=== PATIENT | female | born 1960 | race African-American/Black ===

== ENCOUNTER 2018-03-06 12:06 | Inpatient (IN) ==
--- NOTE | 2018-03-06 09:33 | MH ---
cc: Tr Velasquez MD, Ashil MD DATE OF ADMISSION: 03/06/2018 CHIEF COMPLAINT: Colon carcinoma of the cecum. HISTORY OF PRESENT ILLNESS: This patient was referred to me by Dr. Umesh Roland for a colon carcinoma found in the cecum across from the ileocecal valve. The lesion biopsied adenocarcinoma. She has a family history of colon carcinoma; however, this was her first colonoscopy. PAST MEDICAL HISTORY: Significant for previous history of hepatitis C, as well as a previous hysterectomy for fibroids. She also has a history of hypertension and mild diabetes mellitus. MEDICATIONS: 1. Lisinopril 10 mg a day. 2. Amlodipine 10 mg a day. 3. Metoprolol 50 mg a day. 4. Baclofen 20 mg a day. 5. Trazodone, unknown dosage and usage. 6. Aspirin 81 mg a day. 7. Metformin 500 mg daily. FAMILY HISTORY: Significant for colon carcinoma in her father. SOCIAL HISTORY: Otherwise negative. REVIEW OF SYSTEMS: Otherwise negative. PHYSICAL EXAMINATION: GENERAL: Well-developed, well-nourished female, in no acute distress. SKIN: Warm and dry. HEENT: Extraocular muscles intact. NECK: Supple. CHEST: Clear. HEART: S1 and S2 was heard. No murmurs or gallops. ABDOMEN: Soft, nontender. No masses. RECTAL: Exam was not done. EXTREMITIES: Range of motion within normal limits. NEUROLOGIC: Grossly normal. IMAGING STUDIES: Preoperative studies including ultrasound of the abdomen and liver, which was negative and a CT scan of the chest, which was negative for metastatic disease. IMPRESSION: Colon carcinoma of the cecum. PLAN: Recommend ascending colectomy. I have gone over all the risks, benefits and alternatives with her. She understands and wishes to proceed. Tr Velasquez MD JJULIETA/JIM , 09:16 AM , 09:31 AM
[~2018-03-06 12:06] MED LIST: Lidocaine PF 1% Inj 5 ML Syringe INFILTRATN ONE; Phenylephrine/NS 1000 MCG/10ML Syringe IV.PUSH ONE
[2018-03-06] MEDS ORDERED: Chlorhexidine Gluconate 2% 1 Pack (2 Cloths) TOPICAL SCH (12:45)
[2018-03-06] MEDS ORDERED: Dextrose 5%/NaCl 0.9% Inj 1,000 ML IV.SIG SCH (13:00)
[2018-03-06] MEDS ORDERED: Sodium Chlor 0.9% Inj 500 ML IV.SIG SCH (13:00)
[2018-03-06] MEDS ORDERED: Metoprolol Tartrate 25 MG Tablet PO SCH (13:00)
[2018-03-06 13:02] LABS: Bilirubin,Urine Negative (Negative); Clarity,Urine Hazy (Clear); Color,Urine Amber (Yellw/Straw); Glucose,Urine (UA) Negative (Negative); Hyaline Casts,Urine 9 /lpf (0-3); Leukocyte Esterase,Urine Moderate (Negative); Mucus,Urine Few /lpf (Occasional); Nitrite,Urine Negative (Negative); Specific Gravity,Urine 1.027 (1.002-1.035); Squamous Epithelial Cell,Urine 1 /hpf (0-5)
--- NOTE | 2018-03-06 13:06 | XR ---
EXAM DATE: 03/06/2018 12:47 PM EDT AGE/SEX: 57 years / Female INDICATIONS: Evaluate for pneumonia, pneumothorax or communicable disease. Pre-op colon surgery CLINICAL DATA: This is the patient's initial encounter. Patient reports that signs and symptoms have been present for 1 day and indicates a pain score of 0/10. MEDICAL/SURGICAL HISTORY: Carcinoma, colon. None. COMPARISON: [facility] [place], 11/[place]. . FINDINGS: A single AP view of the chest demonstrates the lungs to be symmetrically aerated without evidence of mass, infiltrate or effusion. Heart size is borderline prominent but well compensated. Osseous struc tures are intact with some degenerative spurring of the dorsal spine. CONCLUSION: 1. Heart size is borderline prominent but well compensated 2. Lungs are clear. Electronically signed by: José Lemus MD 03/06/2018 1:05 PM EDT
[2018-03-06 13:36] LABS: Baso # (Auto) 0.1 th/mm3 (0.0-0.2); Baso % (Auto) 1.1 % (0.0-2.0); Eos # (Auto) 0.2 th/mm3 (0.0-0.4); Eos % (Auto) 3.2 % (0.0-4.0); Hematocrit 27.7 % (35.0-46.0); Hemoglobin 8.8 gm/dL (11.6-15.3); Lymph # (Auto) 1.8 th/mm3 (1.0-4.8); Lymph % (Auto) 25.8 % (9.0-44.0); Mean Corpuscular HGB Conc 31.7 % (32.0-36.0); Mean Corpuscular Hemoglobin 20.4 pg (27.0-34.0); Mean Corpuscular Volume 64.3 fL (80.0-100.0); Mean Platelet Volume 7.2 fL (7.0-11.0); Mono # (Auto) 0.5 th/mm3 (0.0-0.9); Mono % (Auto) 6.6 % (0.0-8.0); Neut # (Auto) 4.5 th/mm3 (1.8-7.7); Neut % (Auto) 63.3 % (16.0-70.0); Platelet Count 377 th/mm3 (150-450); Red Blood Count 4.32 mil/mm3 (4.00-5.30); Red Cell Distribution Width 19.4 % (11.6-17.2); White Blood Count 7.1 th/mm3 (4.0-11.0)
[2018-03-06] MEDS ORDERED: Sugammadex Inj 200 MG/2 ML Vial IV.PUSH ONE (13:37)
[2018-03-06 13:38] LABS: INR 1.1 Ratio; Prothrombin Time 10.9 sec (9.8-11.6)
[2018-03-06] MEDS ORDERED: HYDROmorphone PF Inj 2 MG/ML Vial ONE (13:38)
[2018-03-06 13:46] LABS: Alanine Aminotransferase 54 U/L (10-53); Albumin 3.5 g/dL (3.4-5.0); Anion Gap 9 meq/L (5-15); Aspartate Aminotransferase 43 U/L (15-37); Blood Urea Nitrogen 13 mg/dL (7-18); Calcium 9.2 mg/dL (8.5-10.1); Carbon Dioxide 24.5 meq/L (21.0-32.0); Chloride 110 meq/L (98-107); Glomerular Filtration Rate 84 mL/min (>89); Glucose,Random 86 mg/dL (74-106); Potassium 3.8 meq/L (3.5-5.1); Sodium 143 meq/L (136-145)
[2018-03-06 13:48] LABS: Alkaline Phosphatase 86 U/L (45-117); Total Protein 7.6 g/dL (6.4-8.2)
[2018-03-06] MEDS ORDERED: Potassium Chlor 40 mEq Premix 40 MEQ/100 ML PIGGYBACK IV.SIG PRN (16:18)
[2018-03-06] MEDS ORDERED: Potassium Chlor 20 mEq Premix 20 MEQ/100 ML PIGGYBACK IV.SIG PRN (16:18)
[2018-03-06] MEDS ORDERED: Ketorolac Inj 30 MG/ML (IVP) Vial IV.PUSH PRN (16:21)
[2018-03-06] MEDS ORDERED: Zolpidem Tartrate 5 MG Tablet PO PRN (16:21)
[2018-03-06] MEDS ORDERED: Dextrose 50% in Water 50 ML Vial IV.PUSH PRN (16:31)
[2018-03-06] MEDS ORDERED: fentaNYL Citrate Inj 100 MCG/2 ML Ampul ONE (16:32)
[2018-03-06] MEDS ORDERED: *Meperidine Inj 25 MG/ML Vial PERIprocedural Use ONLY ONE (16:33)
[2018-03-06] MEDS ORDERED: Naloxone Inj 0.4 MG/ML Vial IV.PUSH PRN (16:33)
[2018-03-06] MEDS ORDERED: *morphine SULFATE 4 MG/ML PERIprocedure ONLY ONE ×2 (17:09→17:16)
[2018-03-06 17:13] LABS: Baso # (Auto) 0.1 th/mm3 (0.0-0.2); Baso % (Auto) 0.6 % (0.0-2.0); Eos # (Auto) 0.2 th/mm3 (0.0-0.4); Eos % (Auto) 1.2 % (0.0-4.0); Hematocrit 32.3 % (35.0-46.0); Hemoglobin 9.2 gm/dL (11.6-15.3); Lymph # (Auto) 2.5 th/mm3 (1.0-4.8); Lymph % (Auto) 15.2 % (9.0-44.0); Mean Corpuscular Hemoglobin 18.7 pg (27.0-34.0); Mean Corpuscular Volume 65.7 fL (80.0-100.0); Mean Platelet Volume 7.1 fL (7.0-11.0); Mono # (Auto) 0.9 th/mm3 (0.0-0.9); Mono % (Auto) 5.3 % (0.0-8.0); Neut # (Auto) 12.6 th/mm3 (1.8-7.7); Neut % (Auto) 77.7 % (16.0-70.0); Platelet Count 428 th/mm3 (150-450); Red Blood Count 4.91 mil/mm3 (4.00-5.30); Red Cell Distribution Width 19.7 % (11.6-17.2); White Blood Count 16.3 th/mm3 (4.0-11.0)
[2018-03-06 17:16] LABS: Mean Corpuscular HGB Conc 28.5 % (32.0-36.0)
[2018-03-06] MEDS ORDERED: Morphine Inj 30 MG/30 ML PCA.VIAL PCA ONE (17:16)
[2018-03-06] MEDS ORDERED: KCL 20 mEq/D5W/LR Inj 1,000 ML ONE (17:17)
[2018-03-06 17:31] LABS: Calcium 8.6 mg/dL (8.5-10.1); Potassium 3.8 meq/L (3.5-5.1)
--- NOTE | 2018-03-06 17:37 | MP ---
cc: Tr Velasquez MD,Umesh Simms MD DATE OF OPERATION: 03/06/2018 PREOPERATIVE DIAGNOSIS: Cecal carcinoma. POSTOPERATIVE DIAGNOSIS: Cecal carcinoma. PROCEDURE PERFORMED: 1. Ascending colectomy. 2. Excision of 2 liver lesions with frozen section biopsy of one lesion of the left lobe, which was benign. SURGEON: Tr Velasquez MD FREEZER UNLOADER: Jaskaran Love MD ANESTHESIA: General endotracheal. ESTIMATED BLOOD LOSS: 25 mL. OPERATING TIME: 1 hour and 15 minutes. OPERATIVE FINDINGS: This patient was referred by Dr. Umesh Roland for a colon carcinoma found in the cecum. At surgery, the carcinoma was palpated in the cecum. She also had a 1 cm liver lesion on the dome of the right lobe, which was very superficial and was excised with electrocautery. She also was found to have a small 1.5 cm lesion on the edge of the left lobe of the liver anteriorly and this was taken out with a wedge resection with electrocautery. This lesion was sent for frozen section biopsy and was returned as benign. The other lesion was sent as permanent section. The remainder of the exploration of the liver was palpably normal as was the gallbladder. The remainder of the colon and the small bowel was all palpably normal. There were adhesions of the distal small bowel to the left anterior abdominal wall and the sigmoid colon and these were freed with sharp dissection and electrocautery. This portion of the terminal ileum was excised with the ascending colectomy specimen en bloc. OPERATIVE TECHNIQUE: The patient was placed on the table in the supine position. After adequate general endotracheal anesthesia, the abdomen was prepped and draped in the usual manner. Transverse supraumbilical skin incision was made across the whole abdomen, and the deep subcutaneous tissue was divided with electrocautery and then the rectus muscles were divided as well and the peritoneal cavity was entered with the above-mentioned findings. Our attention was turned to the terminal ileum and it was dissected free of the anterior abdominal wall with sharp dissection without any damage to the terminal ileum. It was close enough to the ileocecal valve that it was resected en bloc with the specimen nevertheless. Next, the cecum and ascending colon was mobilized along its peritoneal reflection and then the lesser sac was entered, and the transverse colon was mobilized and the omentum was mobilized from the transverse colon. The right portion of the omentum was taken with the right portion of the transverse colon. The division of the transverse colon was made with the Ethicon JOSH 55 stapling device just proximal to its mid portion. The marginal vessel was clamped, cut, and ligated with 0 Vicryl ligature. Next, our attention was turned to the terminal ileum and again just proximal to the area of the dissection from the anterior abdominal wall. The terminal ileum was cleared of its mesentery and doubly clamped with Ryan clamps and divided. The ileocolic vessels were doubly clamped, cut, and doubly ligated with 0 Vicryl ligatures and the right colic vessel was clamped, cut, and ligated as well. The specimen was removed from the table, opened and a 3 cm cecal lesion was seen. It was an ulcerated flat lesion without obvious adenopathy. Next, the anastomosis was carried out along the antimesenteric border of the small bowel and the colon with an Ethicon JOSH 55 stapling device and the colotomy was then closed with a TX 60 blue staple height stapler. Next, the opening in the mesentery was approximated with a running 3-0 Vicryl suture in a simple running manner, fully closing the mesentery. Hemostasis was maintained throughout with electrocautery and ligature. The abdominal cavity was irrigated thoroughly and aspirated dry and the bowels were replaced in the abdominal cavity in an credit control clerk manner. The abdominal cavity was then closed in layers using a double-stranded #1 PDS for the posterior rectus sheath, the rectus muscle layer and subcutaneous tissue was then irrigated thoroughly with a liter of saline solution and aspirated dry and the anterior rectus sheath was closed with a double stranded #1 PDS as well. The subcutaneous tissue was then irrigated thoroughly again with 1 liter of saline solution, aspirated dry and the skin was closed with running 3-0 Vicryl subcuticular sutures. Dressings were applied. Sponge, needle and instrument counts were reported as correct. The estimated blood loss was 25 mL. Operating time was 1 hour and 15 minutes. The patient tolerated the procedure well and left the operating room in good condition. MD ROSS Abarca/JIM , 05:15 PM , 05:36 PM
[2018-03-06] MEDS: KCL 20 mEq/D5W/LR Inj 1,000 ML IV.CONT SCH ×2 (18:31→21:59)
[2018-03-06] MEDS: Morphine Inj 30 MG/30 ML PCA.VIAL PCA PRN (18:42)
[2018-03-06] MEDS ORDERED: Morphine Inj 4 MG/ML Vial IV.SIG ONE (18:45)
[2018-03-06] MEDS: ceFAZolin 2 GM Premix Inj 2 GM/50 ML PIGGYBACK IV.SIG SCH (19:43)
[2018-03-06] MEDS: Insulin NovoLIN Regular Correctional Sugar Inj SQ SCH (21:56)
[2018-03-06] MEDS: Lisinopril 20 MG Tablet PO SCH (22:05)
[2018-03-07] MEDS: ceFAZolin 2 GM Premix Inj 2 GM/50 ML PIGGYBACK IV.SIG SCH (03:17)
[2018-03-07] MEDS: KCL 20 mEq/D5W/LR Inj 1,000 ML IV.CONT SCH ×2 (03:31→13:38)
[2018-03-07] MEDS: Insulin NovoLIN Regular Correctional Sugar Inj SQ SCH ×4 (03:39→19:06)
[2018-03-07 05:23] LABS: Baso % (Auto) 0.3 % (0.0-2.0); Eos % (Auto) 0.2 % (0.0-4.0); Hematocrit 29.6 % (35.0-46.0); Hemoglobin 8.7 gm/dL (11.6-15.3); Lymph # (Auto) 0.7 th/mm3 (1.0-4.8); Lymph % (Auto) 5.8 % (9.0-44.0); Mean Corpuscular Hemoglobin 18.9 pg (27.0-34.0); Mean Corpuscular Volume 64.5 fL (80.0-100.0); Mean Platelet Volume 7.1 fL (7.0-11.0); Mono % (Auto) 8.4 % (0.0-8.0); Neut # (Auto) 9.8 th/mm3 (1.8-7.7); Neut % (Auto) 85.3 % (16.0-70.0); Platelet Count 393 th/mm3 (150-450); Red Blood Count 4.58 mil/mm3 (4.00-5.30); Red Cell Distribution Width 19.8 % (11.6-17.2); White Blood Count 11.5 th/mm3 (4.0-11.0)
[2018-03-07 05:27] LABS: Mean Corpuscular HGB Conc 29.4 % (32.0-36.0)
[2018-03-07 05:41] LABS: Calcium 8.6 mg/dL (8.5-10.1); Carbon Dioxide 27.2 meq/L (21.0-32.0); Potassium 4.4 meq/L (3.5-5.1)
[2018-03-07] MEDS: Morphine Inj 30 MG/30 ML PCA.VIAL PCA PRN (06:13)
[2018-03-07] MEDS: Lisinopril 20 MG Tablet PO SCH ×2 (08:19→21:19)
[2018-03-07] MEDS: Pantoprazole Inj 40 MG Vial IV.PUSH SCH (08:19)
[2018-03-07] MEDS: amLODIPine 10 MG Tablet PO SCH (08:19)
--- NOTE | 2018-03-07 10:24 | ECG ---
Date Performed: 03/06/2018 Time Performed: 13:04:29 PTAGE: 57 years EKG: Sinus rhythm NONSPECIFIC T-WAVE ABNORMALITY BORDERLINE ECG PREVIOUS TRACING : 11/04/2015 12.17 Since the previous tracing, no significant change noted DOCTOR: Belkys Tavares Interpretating Date/Time 03/07/2018 10:23:35
--- NOTE | 2018-03-07 16:47 | P.PNCS ---
Subjective Interval history: C/R Surg POD #1 afebrile, VSS UO good estela little PO Objective Result Diagrams: 03/07/18 03:59 03/07/18 03:59 Objective Remarks: PE alert Abd - soft, round, little tympany wound dry Assessment and Plan - Plan Imp: stable post-op OOB decr IVF tx to floor
[2018-03-07] MEDS ORDERED: ceFAZolin 2 GM Premix Inj 2 GM/50 ML PIGGYBACK IV.SIG SCH (19:30)
[2018-03-08] MEDS: KCL 20 mEq/D5W/LR Inj 1,000 ML IV.CONT SCH ×3 (01:51→17:15)
[2018-03-08 04:28] LABS: Baso # (Auto) 0.1 th/mm3 (0.0-0.2); Baso % (Auto) 0.6 % (0.0-2.0); Eos # (Auto) 1.1 th/mm3 (0.0-0.4); Hematocrit 25.3 % (35.0-46.0); Hemoglobin 7.6 gm/dL (11.6-15.3); Lymph # (Auto) 1.2 th/mm3 (1.0-4.8); Lymph % (Auto) 9.5 % (9.0-44.0); Mean Corpuscular Hemoglobin 19.2 pg (27.0-34.0); Mean Corpuscular Volume 63.8 fL (80.0-100.0); Mean Platelet Volume 7.3 fL (7.0-11.0); Mono % (Auto) 8.5 % (0.0-8.0); Neut # (Auto) 8.9 th/mm3 (1.8-7.7); Neut % (Auto) 72.4 % (16.0-70.0); Platelet Count 342 th/mm3 (150-450); Red Blood Count 3.97 mil/mm3 (4.00-5.30); Red Cell Distribution Width 19.2 % (11.6-17.2); White Blood Count 12.3 th/mm3 (4.0-11.0)
[2018-03-08 04:33] LABS: Mean Corpuscular HGB Conc 30.1 % (32.0-36.0)
[2018-03-08 04:57] LABS: Anion Gap 10 meq/L (5-15); Blood Urea Nitrogen 4 mg/dL (7-18); Calcium 8.5 mg/dL (8.5-10.1); Carbon Dioxide 26.3 meq/L (21.0-32.0); Chloride 104 meq/L (98-107); Glomerular Filtration Rate Greater Than 89 mL/min (>89); Glucose,Random 120 mg/dL (74-106); Potassium 3.5 meq/L (3.5-5.1); Sodium 140 meq/L (136-145)
[2018-03-08] MEDS: Insulin NovoLIN Regular Correctional Sugar Inj SQ SCH ×5 (06:44→23:32)
[2018-03-08] MEDS: Lisinopril 20 MG Tablet PO SCH ×2 (08:31→21:44)
[2018-03-08] MEDS: amLODIPine 10 MG Tablet PO SCH (08:32)
[2018-03-08] MEDS: Pantoprazole Inj 40 MG Vial IV.PUSH SCH (08:33)
[2018-03-09] MEDS: KCL 20 mEq/D5W/LR Inj 1,000 ML IV.CONT SCH (03:16)
[2018-03-09] MEDS: Insulin NovoLIN Regular Correctional Sugar Inj SQ SCH (05:39)
[2018-03-09] MEDS: Lisinopril 20 MG Tablet PO SCH (09:33)
[2018-03-09] MEDS: amLODIPine 10 MG Tablet PO SCH (09:33)
[2018-03-09] MEDS: Pantoprazole Inj 40 MG Vial IV.PUSH SCH (09:34)
--- NOTE | 2018-03-20 09:50 | MD ---
cc: Tr Velasquez MD, Ashil MD DATE OF DISCHARGE: 03/09/2018 ADMITTING DIAGNOSIS: Carcinoma of the right colon and cecum. DISCHARGE DIAGNOSIS: Carcinoma of the right colon and cecum. OPERATIVE PROCEDURE: Ascending colectomy 03/06/2018. HISTORY OF PRESENT ILLNESS: This patient was referred to me by Dr. Umesh Roland for a colon carcinoma found in the cecum. For this reason, an ascending colectomy was recommended. LABORATORY DATA: The pathology report on the removed specimen revealed that the lesion in the colon was an invasive moderately differentiated adenocarcinoma, which was 3.5 cm in greatest diameter. There was no tumor perforation. It was a moderately differentiated tumor. The margins were uninvolved. The tumor invaded the muscular propria lymph nodes were identified; none were involved with metastatic disease. This was a T2 N0 lesion. Of note, 2 lesions in the liver were resected with a wedge biopsy and were found to be hyalinized nodule and features consistent with calcified appendices epiploica and were all benign and negative for metastatic carcinoma. HOSPITAL COURSE: The patient was admitted to the hospital on 03/06/2018, underwent an ascending colectomy. On the first postoperative day, she was started on a clear liquid diet; on the second postoperative day, she was started on full liquids and on the third postoperative day, she was started on a regular diet and discharged from the hospital in good condition. She was instructed to do no driving for 2 weeks, do no heavy lifting for 6 weeks and to follow up with me in the office in 2 weeks. She was instructed to call me with any problems. MD ROSS Abarca/JIM , 09:24 AM , 09:30 AM
== END 2018-03-09 10:43 | disposition home or self-care (01) ==
LOC: HSDI 12:06 → HCPC 20:37 → N07 03-08 17:45
PROVIDERS: ADMIT Colon & Rectal Surgery; ATTEND Colon & Rectal Surgery

== ENCOUNTER 2018-08-26 09:18 | Observation (INO) ==
--- NOTE | 2018-08-26 09:47 | ED ---
HPI General Chief Complaint: Neuro Symptoms/Deficit Stated Complaint: left leg numbness Time Seen by Provider: 08/26/18 09:22 Source: patient Mode of arrival: ambulatory Limitations: no limitations History of Present Illness HPI Narrative: Patient is a 57 year old female who presents to the ER with past medical history of hepatitis C, hypertension and diabetes as well as colon cancer, presents to the emergency room with complaints of left-sided weakness. Patient reports that for the past 4 months, she has had weakness and numbness to her left lower extremity. Patient reports that she would have numbness and pain, reports that it would only last for a few minutes/hours and then resolve on its own. Patient reports that she woke up this morning unable to move her left lower extremity. Patient reports that she has been dragging her left lower extremity, reports that she feels as if her left leg is not working. Patient reports that her left arm feels numb as well. Patient reports that usually when she has these symptoms, resolves, reports that today has been continuous and she is concerned. Patient with no history of CVA in the past. Patient denies any headache or dizziness, denies any nausea or vomiting. Patient denies any chest pain or shortness of breath. Related Data Home Medications Medication Instructions Recorded Confirmed amlodipine 10 mg PO DAILY 03/04/18 08/26/18 baclofen 20 mg PO BID 03/04/18 08/26/18 lisinopril 10 mg PO DAILY 03/04/18 08/26/18 metformin 500 mg PO DAILY 03/04/18 08/26/18 ascorbic acid (vitamin C) [Vitamin 500 mg PO DAILY 08/26/18 08/26/18 C] diphenhydramine HCl [Benadryl] 25 mg PO Q4-6H PRN 08/26/18 08/26/18 guaifenesin 400 mg PO Q4H PRN 08/26/18 08/26/18 lurasidone [Latuda] 80 mg PO DAILY 08/26/18 08/26/18 trazodone 100 mg PO DAILY 08/26/18 08/26/18 Allergies Allergy/AdvReac Type Severity Reaction Status Date / Time No Known Allergies Allergy Verified 03/06/18 13:42 Review of Systems ROS: all other systems reviewed are negative Neurologic Reports abnormal gait, Reports lack of coordination, Reports focal weakness, Reports numbness, Reports tingling, Reports paresthesias and Reports weakness [facility] Medical History Medical History Arthritis (Acute) Bipolar 1 disorder (Acute) Cataract (Acute) Colon cancer (Acute) Diabetes (Acute) Full dentures (Acute) GERD (gastroesophageal reflux disease) (Acute) Gout (Acute) Hepatitis C (Acute) Hx of hysterectomy (Acute) Hypertension (Acute) Osteoarthritis (Acute) Surgical History Surgical History H/O total hysterectomy (Acute) Social History Social History Substance History: Active Abuse Second Hand Smoke Exposure: No Smoking Status: Never smoker Tobacco Type: Cigarettes How Often Do You Have a Drink Containing Alcohol: 2 to 4 times a month Recent Travel in [facility] within the Last 8 Weeks: No Recent Out of Country Travel within the Last 8 Weeks: No Substance Abuse Detail Marijuana: Substance Use Status: Active Route Used Substance Abuse: Inhalation Substance Frequency: twice a week Substance Abuse Comment: helps with pain Immunization History Tetanus Immunization: Unsure Exam Narrative Exam Narrative: GENERAL: Mild distress SKIN: Focused skin assessment warm/dry. HEAD: Atraumatic. Normocephalic. EYES: Pupils equal and round. No scleral icterus. No injection or drainage. ENT: No nasal bleeding or discharge. Mucous membranes pink and moist. NECK: Trachea midline. No JVD. CARDIOVASCULAR: Regular rate and rhythm. No murmur appreciated. RESPIRATORY: No accessory muscle use. Clear to auscultation. Breath sounds equal bilaterally. GASTROINTESTINAL: Abdomen soft, non-tender, nondistended. Hepatic and splenic margins not palpable. MUSCULOSKELETAL: No obvious deformities. No clubbing. No cyanosis. No edema. NEUROLOGICAL: Awake and alert. Normal speech. Patient unable to perform finger to nose test to left upper extremity, she is unable to move her LLE. PSYCHIATRIC: Appropriate mood and affect; insight and judgment normal. Course Initial Documented Vital Signs Temperature 98.0 F 08/26/18 09:24 Pulse Rate 76 08/26/18 09:24 Respiratory Rate 24 08/26/18 09:24 Blood Pressure 184/110 H 08/26/18 09:24 Pulse Oximetry 100 08/26/18 09:24 Last Documented Vital Signs Temperature 98.0 F 08/26/18 09:24 Pulse Rate 82 08/26/18 10:04 Respiratory Rate 21 08/26/18 09:30 Blood Pressure 184/110 H 08/26/18 09:24 Pulse Oximetry 98 08/26/18 09:43 Medical Decision Making MDM Narrative Medical decision making narrative: During the course of the patients emergency department visit, the patients history, examination, and differential diagnosis were reviewed with the patient. The patient was placed on a registered nurse cardiac telemetry with oximetry and frequent blood pressure monitoring. The patient had an IV access obtained and blood work sent for analysis. Discussed with patient concern for possible CVA, she is out of the window for lytics she woke up with her symptoms. Her left leg numbness as well as weakness has been on and off for the past 4 months The patient was initially provided ASA 162mg The patients laboratory studies were reviewed Radiology studies were reviewed and remarkable for xray of chest: heart size is borderline but well compensated, lungs are clear ct of head: Old lacunar infarcts or ischemic change within the left sub-insular region, she has minimal scattered chronic periventricular and subcortical white matter with small vessel changes bilaterally, no acute intracranial abnormality. Case reviewed with neurologist, Dr. Hart, recommends admission to the hospital for stroke workup. Given that her symptoms have been waxing and waning for the past 4 months, does not need an emergent CTA or CT perfusion scan Case reviewed with the family practice residents who will admit patient to their service. Patient was notified of her lab results as well as her CT results. Patient understands admission to the hospital for stroke workup. Medical Screen Exam Complete: Yes Emergency Medical Condition: Yes Differential Diagnosis Differential Diagnosis: cva, tia, Lab Data Lab results reviewed: Yes I reviewed the patient's lab results. Result diagrams: 08/26/18 09:45 08/26/18 09:45 Lab Results 08/26/18 08/26/18 08/26/18 Range/Units 09:45 09:45 09:45 WBC 7.2 (4.0-11.0) th/mm3 RBC 5.23 (4.00-5.30) mil/mm3 Hgb 12.7 (11.6-15.3) gm/dL Hct 39.3 (35.0-46.0) % MCV 75.2 L (80.0-100.0) fL MCH 24.3 L (27.0-34.0) pg MCHC 32.4 (32.0-36.0) % RDW 21.5 H (11.6-17.2) % Plt Count 335 (150-450) th/mm3 MPV 7.6 (7.0-11.0) fL Neut % (Auto) 57.6 (16.0-70.0) % Lymph % (Auto) 32.8 (9.0-44.0) % [place] % (Auto) 6.2 (0.0-8.0) % Eos % (Auto) 1.1 (0.0-4.0) % Baso % (Auto) 2.3 H (0.0-2.0) % Neut # (Auto) 4.2 (1.8-7.7) th/mm3 Lymph # (Auto) 2.4 (1.0-4.8) th/mm3 [place] # (Auto) 0.4 (0.0-0.9) th/mm3 Eos # (Auto) 0.1 (0.0-0.4) th/mm3 Baso # (Auto) 0.2 (0.0-0.2) th/mm3 WBC Differential . Differential Comment Auto diff final PT 10.9 (9.8-11.6) sec INR 1.1 Ratio APTT 25.0 (23.4-31.7) sec Sodium 144 (136-145) meq/L Potassium 4.2 (3.5-5.1) meq/L Chloride 112 H (98-107) meq/L Carbon Dioxide 24.6 (21.0-32.0) meq/L Anion Gap 7 (5-15) meq/L BUN 11 (7-18) mg/dL Creatinine 0.64 (0.50-1.00) mg/dL Estimated GFR Greater than 89 (>89) mL/min Random Glucose 101 (74-106) mg/dL Calcium 8.6 (8.5-10.1) mg/dL Total Bilirubin 0.3 (0.2-1.0) mg/dL AST 55 H (15-37) U/L ALT 62 H (10-53) U/L Alkaline Phosphatase 123 H (45-117) U/L Total Creatine Kinase 310 H (26-192) U/L CK-MB (CK-2) 2.8 (0.5-3.6) ng/mL CK-MB (CK-2) % 0.9 (0.0-4.0) % Troponin I Less than 0.02 L (0.02-0.05) ng/mL Total Protein 8.7 H (6.4-8.2) g/dL Albumin 3.8 (3.4-5.0) g/dL Imaging Data Attestation: I personally reviewed and interpreted this imaging study as follows : Radiologist's impression: Head CT 08/26/18 09:41 CONCLUSION: 1. No significant change compared to the previous examination in December 2011. 2. No acute intracranial abnormality. 3. Minimal scattered chronic periventricular and subcortical white matter small vessel ischemic changes bilaterally. 4. Old lacunar infarct or ischemic change within the left subinsular region. . ECG Data EKG Prior to Arrival: No Attestation: I personally reviewed and interpreted this ECG as follows: Interpretation: EKG at 0953: NSR at 72bpm, qt/qtc: 420/444, nonspecific st and t wave changes Discharge Plan Discharge Disposition Patient Disposition: ED Admit(ED Internal Use Only) Discharge Condition Condition: Fair Discharge Order Discharge Orders: ED Use Only Admit Order (Routine); Ordered 08/26/18 Ordered By: Jannet Thomas Discharge Details Diagnosis: CVA (cerebral vascular accident) Physicians Team ED Provider: Jannet Thomas Rxs /Orders / Referrals /Forms Prescriptions: No Action lisinopril 20 mg Tablet 10 mg PO DAILY RF: 0 baclofen 20 mg Tablet 20 mg PO BID RF: 0 amlodipine 10 mg Tablet 10 mg PO DAILY RF: 0 metformin 500 mg Tablet Extended Release 24 Hr 500 mg PO DAILY RF: 0 ascorbic acid (vitamin C) [Vitamin C] 500 mg Tablet 500 mg PO DAILY RF: 0 trazodone 100 mg Tablet 100 mg PO DAILY RF: 0 diphenhydramine HCl [Benadryl] 25 mg Capsule 25 mg PO Q4-6H PRN (Reason: Allergy Symptoms) RF: 0 guaifenesin 400 mg Tablet 400 mg PO Q4H PRN (Reason: Secretions) RF: 0 lurasidone [Latuda] 80 mg Tablet 80 mg PO DAILY RF: 0 Discharge Interventions Interventions: Vital Signs Last Done: 08/26/18 09:30 Status ED Status: With Doctor
[2018-08-26 09:57] LABS: Baso # (Auto) 0.2 th/mm3 (0.0-0.2); Baso % (Auto) 2.3 % (0.0-2.0); Eos # (Auto) 0.1 th/mm3 (0.0-0.4); Eos % (Auto) 1.1 % (0.0-4.0); Hematocrit 39.3 % (35.0-46.0); Hemoglobin 12.7 gm/dL (11.6-15.3); Lymph # (Auto) 2.4 th/mm3 (1.0-4.8); Lymph % (Auto) 32.8 % (9.0-44.0); Mean Corpuscular HGB Conc 32.4 % (32.0-36.0); Mean Corpuscular Hemoglobin 24.3 pg (27.0-34.0); Mean Corpuscular Volume 75.2 fL (80.0-100.0); Mean Platelet Volume 7.6 fL (7.0-11.0); Mono # (Auto) 0.4 th/mm3 (0.0-0.9); Mono % (Auto) 6.2 % (0.0-8.0); Neut # (Auto) 4.2 th/mm3 (1.8-7.7); Neut % (Auto) 57.6 % (16.0-70.0); Platelet Count 335 th/mm3 (150-450); Red Blood Count 5.23 mil/mm3 (4.00-5.30); Red Cell Distribution Width 21.5 % (11.6-17.2); White Blood Count 7.2 th/mm3 (4.0-11.0)
[2018-08-26 10:08] LABS: INR 1.1 Ratio
[2018-08-26 10:09] LABS: Prothrombin Time 10.9 sec (9.8-11.6)
--- NOTE | 2018-08-26 10:19 | CT ---
EXAM DATE: 08/26/2018 10:14 AM EST AGE/SEX: 57 years / Female INDICATIONS: Patient complains of weakness, left leg numbness and tingling for 2 months. CLINICAL DATA: This is the patient's initial encounter. Patient reports that signs and symptoms have been present for 2 months and indicates a pain score of 8/10. MEDICAL/SURGICAL HISTORY: Carcinoma, colon. Diabetes. Hepatitis C. hypertension Hysterectomy. RADIATION DOSE: 56.35 CTDI (mGy) COMPARISON: C, CT BRAIN W/O CONTRAST, 12/18/2011. POI, MR BRAIN W AND W/O CONTRAST, 06/21/2015. . TECHNIQUE: CT of the head without contrast. Using automated exposure control and adjustment of the mA and/or kV according to patient size, radiation dose was kept as low as reasonably achievable to ob tain optimal diagnostic quality images. DICOM format image data is available electronically for revi ew and comparison. FINDINGS: Cerebrum: The ventricles are normal for age. No evidence of midline shift, mass lesion, hemorrhage or acute infarction. No extraaxial fluid collections are seen. Minimal scattered chronic periventric ular and subcortical white matter small vessel ischemic changes bilaterally. Old lacunar infarct or i schemic change is noted within the subinsular region on the left. Posterior Fossa: The cerebellum and brainstem are intact. The 4th ventricle is midline. The cerebe llopontine angle is unremarkable. Extracranial: The visualized portion of the orbits is intact. Skull: The calvaria is intact. No evidence of skull fracture. CONCLUSION: 1. No significant change compared to the previous examination in December 2011. 2. No acute intracranial abnormality. 3. Minimal scattered chronic periventricular and subcortical white matter small vessel ischemic brown ges bilaterally. 4. Old lacunar infarct or ischemic change within the left subinsular region. . Electronically signed by: Isidro Nash MD Board Certified Radiologist 08/26/2018 10:18 AM EST
[2018-08-26 10:26] LABS: Alanine Aminotransferase 62 U/L (10-53); Albumin 3.8 g/dL (3.4-5.0); Anion Gap 7 meq/L (5-15); Aspartate Aminotransferase 55 U/L (15-37); Blood Urea Nitrogen 11 mg/dL (7-18); Calcium 8.6 mg/dL (8.5-10.1); Carbon Dioxide 24.6 meq/L (21.0-32.0); Chloride 112 meq/L (98-107); Glomerular Filtration Rate Greater Than 89 mL/min (>89); Glucose,Random 101 mg/dL (74-106); Sodium 144 meq/L (136-145)
[2018-08-26 10:27] LABS: Potassium 4.2 meq/L (3.5-5.1)
[2018-08-26 10:28] LABS: Alkaline Phosphatase 123 U/L (45-117); Creatine Kinase 310 U/L (26-192); Total Protein 8.7 g/dL (6.4-8.2)
[2018-08-26 10:40] LABS: CKMB Percent 0.9 % (0.0-4.0); Creatine Kinase MB 2.8 ng/mL (0.5-3.6)
--- NOTE | 2018-08-26 11:15 | P.HPFP ---
History of Present Illness Primary Care Physician: Dr Tr Schmidt <John Cannon - 08/26/18 17:50> Dr Tr Schmidt <Bailee Kay - 08/26/18 11:15> History of Present Illness: 57 year old female complaining of Left sided leg weakness that started 2 months ago after her colon surgery for colon cancer. HPI limited due to patient being emotionally labile during the interview. She states that the leg pain is usually worse in the morning and at night when she laid down to sleep. She would use a heating pad and warm showers to alleviate the pain. The pain is located at the left hip and radiates to the groin. Patient says that during the day when she is walking the pain goes away. She also confirms dragging of her left foot and also associated numbness and tingling of the left hand and feet. This morning when she got into the shower she was unable to move her left leg and she had associated numbing pain that felt like a pressure. She was unable to lift her left leg and came to the emergency room for further evaluation. PMH: HBP, DM2, Osteoarthritis, Hep C, Renal Failure, Depression. PSH: Hysterectomy and colon cancer surgery. Allergies: NKDA Meds: Reconciled. Fam Hx: Father had prostate Cancer, Mother has a heart disorder, abdominal obstruction. Social Hx: Drinks alcohol everyday. Use to be a crack addict (last did crack 3 years ago, smoked) Smokes marijuana every other day. Does not smoke cigarettes. Lives alone. Sexually Active with males. No History of HIV/ STDs. CODE STATUS: DNR/DNI. Review of systems: Denies any chest pain, shortness of breath, abdominal pain, problems with urination or defecation. Left eye blurriness but states it is due to her glaucoma. Denies any headaches, dizziness. <Bailee Kay - 08/26/18 17:28> - Diagnosis (1) Left-sided weakness (2) Numbness and tingling (3) Diabetes (4) Osteoarthritis (5) Hypertension (6) Hepatitis C (7) Renal disease (8) Depression (9) Nutrition, metabolism, and development symptoms <John Cannon 08/26/18 17:50> (1) Left-sided weakness (2) Numbness and tingling (3) Diabetes (4) Osteoarthritis (5) Hypertension (6) Hepatitis C (7) Renal disease (8) Depression (9) Nutrition, metabolism, and development symptoms <Bailee Kay 08/26/18 17:28> Inpatient Certification: I certify that the inpatient services were ordered in accordance with Medicare regulations governing the order. This includes certification that hospital inpatient services are reasonable and necessary and in the case of services not specified as inpatient-only under 42 CFR 419.22(n), that they are appropriately provided as inpatient services in accordance to with the 2-midnight benchmark under 43 CFR 412.3(e) <John Cannon 08/26/18 17:50> PMFSH - History History Provided By: Patient, Intelligence Agent / EMT <Bailee Kay 08/26/18 11 :15> - Medical History Medical History: Medical History (Last Reviewed 08/26/18 @ 09:52 by Jannet Thomas) Arthritis Bipolar 1 disorder Cataract Colon cancer Diabetes Full dentures GERD (gastroesophageal reflux disease) Gout Hepatitis C Hx of hysterectomy Hypertension Osteoarthritis <John Cannon 08/26/18 17:50> Medical History (Last Reviewed 08/26/18 @ 09:52 by Jannet Thomas) Arthritis Bipolar 1 disorder Cataract Colon cancer Diabetes Full dentures GERD (gastroesophageal reflux disease) Gout Hepatitis C Hx of hysterectomy Hypertension Osteoarthritis <Bailee Kay 08/26/18 12:16> - Surgical History Surgical History: Surgical History (Last Reviewed 08/26/18 @ 09:52 by Jannet Thomas) H/O total hysterectomy <John Cannon 08/26/18 17:50> Surgical History (Last Reviewed 08/26/18 @ 09:52 by Jannet Thomas) H/O total hysterectomy <Bailee Kay 08/26/18 11:15> - Tobacco History Second Hand Smoke Exposure: No <Sarah GuardadoBailee 08/26/18 11:15> Smoking Status: Never smoker <Bailee Kay 08/26/18 11:15> Tobacco Type: Cigarettes <Bailee Kay 08/26/18 11:15> - Alcohol History How Often Do You Have a Drink Containing Alcohol: 2 to 4 times a month <Sarah GuardadoBailee 08/26/18 11:15> - Substance Use History Substance History: Active Abuse <Bailee Kay 08/26/18 11:15> - Substance Use Type Marijuana Status: Active <Bailee Kay 08/26/18 11:15> Route Used: Inhalation <Sarah GuardadoBailee 08/26/18 11:15> Frequency: twice a week <Sarah GuardadoBailee 08/26/18 11:15> Comment: helps with pain <Sarah GuardadoBailee 08/26/18 11:15> - Travel History Recent Travel in the [facility] Within the Last 8 Weeks: No <Sarah GuardadoBailee 04/06 11:15> Recent Travel Out of the Country Within the Last 8 Weeks: No <Bailee Kay 08/26/18 11:15> - Immunization History Tetanus Immunization: Unsure <Bailee Kay 08/26/18 11:15> Medications and Allergies Allergies Allergy/AdvReac Type Severity Reaction Status Date / Time No Known Allergies Allergy Verified 03/06/18 13:42 <John Cannon 08/26/18 17:50> Home Medications Medication Instructions Recorded Confirmed Type amlodipine 10 mg PO DAILY 03/04/18 08/26/18 History baclofen 20 mg PO BID 03/04/18 08/26/18 History lisinopril 10 mg PO DAILY 03/04/18 08/26/18 History metformin 500 mg PO DAILY 03/04/18 08/26/18 History ascorbic acid (vitamin C) [Vitamin 500 mg PO DAILY 08/26/18 08/26/18 History C] diphenhydramine HCl [Benadryl] 25 mg PO Q4-6H PRN 08/26/18 08/26/18 History guaifenesin 400 mg PO Q4H PRN 08/26/18 08/26/18 History lurasidone [Latuda] 80 mg PO DAILY 08/26/18 08/26/18 History trazodone 100 mg PO DAILY 08/26/18 08/26/18 History <John Cannon 08/26/18 17:50> Active Medications: Active Medications Acetaminophen (Tylenol) 650 mg PO Q4H PRN PRN Reason: Temp > 100.4 Al Hydroxide/Mg Hydroxide (Milk Of Magnesia Liq) 30 ml PO Q12H PRN PRN Reason: Mild Constipation Amlodipine Besylate (Norvasc) 10 mg PO DAILY [facility] Last Admin: 08/26/18 12:29 Dose: 10 mg Ascorbic Acid (Vitamin C) 500 mg PO DAILY [facility] Bisacodyl (Dulcolax Supp) 10 mg RECTAL DAILY PRN PRN Reason: SEVERE CONSITIPATION Dextrose (D50w Vial) 50 ml IV.PUSH UNSCH PRN PRN Reason: PER HYPOGLYCEMIA PROTOCOL Gabapentin (Neurontin) 200 mg PO TID [facility] Glucagon (Glucagon Inj) 1 mg OTHER PRN PRN PRN Reason: for Hypoglycemia Protocol Sodium Chloride (Ns Inj) 1,000 mls @ 140 mls/hr IV.CONT .Q7H9M [facility] Insulin Aspart (Novolog Insulin Correctional Sugar Inj) 0 unit SQ ACHS AND 3AM TODD; Protocol Ketorolac Tromethamine (Toradol Inj) 15 mg IV.PUSH Q6H PRN PRN Reason: PAIN 3-5; IF UABLE TO TAKE PO Stop: 08/31/18 11:31 Lactulose (Lactulose Liq) 30 ml PO DAILY PRN PRN Reason: SEVERE CONSITIPATION Lisinopril (Prinivil) 10 mg PO DAILY [facility] Last Admin: 08/26/18 12:29 Dose: 10 mg Lurasidone HCl (Latuda) 80 mg PO DAILY [facility] Naloxone HCl (Narcan Inj) 0.4 mg IV.PUSH UNSCH PRN PRN Reason: SEE LABEL COMMENTS Ondansetron HCl (Zofran Inj) 4 mg IV.PUSH Q6H PRN PRN Reason: NAUSEA OR VOMITING Senna/Docusate Sodium (Darleen-Colace) 1 tab PO BID [facility] Sennosides (Senokot) 17.2 mg PO Q12H PRN PRN Reason: Moderate Constipation Sodium Chloride (Ns Flush) 2 ml IV.FLUSH PRN PRN PRN Reason: FLUSH AFTER USING IV ACCESS Sodium Chloride (Ns Flush) 2 ml IV.FLUSH BID [facility] Sodium Chloride (Ns Flush) 2 ml IV.FLUSH PRN PRN PRN Reason: FLUSH AFTER USING IV ACCESS <John Cannon - 08/26/18 17:50> Active Medications Sodium Chloride (Ns Flush) 2 ml IV.FLUSH PRN PRN PRN Reason: FLUSH AFTER USING IV ACCESS <Bailee Kay - 08/26/18 11:15> Exam Vital signs: Vital Signs 08/26/18 09:24 08/26/18 09:30 08/26/18 09:43 Temperature 98.0 F Pulse Rate 76 72 Respiratory Rate 24 21 Blood Pressure 184/110 H Pulse Oximetry 100 99 98 08/26/18 10:04 08/26/18 12:13 Temperature Pulse Rate 82 65 Respiratory Rate 16 Blood Pressure 170/93 H Pulse Oximetry 96 Intake & Output 08/25/18 08/26/18 08/26/18 18:59 06:59 18:59 Weight 99.79 kg <John Cannon - 08/26/18 17:50> Vital Signs 08/26/18 09:24 08/26/18 09:30 08/26/18 09:43 Temperature 98.0 F Pulse Rate 76 72 Respiratory Rate 24 21 Blood Pressure 184/110 H Pulse Oximetry 100 99 98 08/26/18 10:04 Temperature Pulse Rate 82 Respiratory Rate Blood Pressure Pulse Oximetry Intake & Output 08/25/18 08/26/18 08/26/18 18:59 06:59 18:59 Weight 99.79 kg <Bailee Kay - 08/26/18 11:15> Narrative: GENERAL: Overweight appearing female, sitting in examination bed, emotionally labile. SKIN: Warm and dry. HEAD: Normocephalic. EYES: No scleral icterus. No injection or drainage. NECK: Supple, trachea midline. No JVD or lymphadenopathy. CARDIOVASCULAR: Grade 2 out of 5 systolic murmur appreciated at the left sternal border. No radiation. Regular rate. RESPIRATORY: Breath sounds equal bilaterally. No accessory muscle use. GASTROINTESTINAL: Abdomen soft, non-tender, nondistended. MUSCULOSKELETAL: No cyanosis, or edema. Cranial nerves II through XII intact. 5 out of 5 strength in the right upper and lower extremities. 2 out of 5 strength in the left upper and lower extremities. Sensation intact bilaterally. Tenderness to palpation of the left greater trochanter region. BACK: Nontender without obvious deformity. No CVA tenderness. <Bailee Kay - 08/26/18 15:17> Results - Labs Result diagrams: 08/26/18 09:45 08/26/18 09:45 <John Cannon - 08/26/18 17:50> Abnormal lab results 08/26/18 08/26/18 08/26/18 Range/Units 09:45 09:45 12:15 MCV 75.2 L (80.0-100.0) fL MCH 24.3 L (27.0-34.0) pg RDW 21.5 H (11.6-17.2) % Baso % (Auto) 2.3 H (0.0-2.0) % Chloride 112 H (98-107) meq/L AST 55 H (15-37) U/L ALT 62 H (10-53) U/L Alkaline Phosphatase 123 H (45-117) U/L Total Creatine Kinase 310 H (26-192) U/L Troponin I Less than 0.02 L (0.02-0.05) ng/mL Total Protein 8.7 H (6.4-8.2) g/dL Ur Leukocyte Esterase (Negative) Urine Bacteria (None) /hpf Urine Cocaine Screen Pos H (Neg) U Cannabinoids Screen Pos H (Neg) 08/26/18 Range/Units 12:15 MCV (80.0-100.0) fL MCH (27.0-34.0) pg RDW (11.6-17.2) % Baso % (Auto) (0.0-2.0) % Chloride (98-107) meq/L AST (15-37) U/L ALT (10-53) U/L Alkaline Phosphatase (45-117) U/L Total Creatine Kinase (26-192) U/L Troponin I (0.02-0.05) ng/mL Total Protein (6.4-8.2) g/dL Ur Leukocyte Esterase Small H (Negative) Urine Bacteria Rare H (None) /hpf Urine Cocaine Screen (Neg) U Cannabinoids Screen (Neg) Short CBC 08/26/18 Range/Units 09:45 WBC 7.2 (4.0-11.0) th/mm3 Hgb 12.7 (11.6-15.3) gm/dL Hct 39.3 (35.0-46.0) % Plt Count 335 (150-450) th/mm3 BMP 08/26/18 09:45 Sodium 144 Potassium 4.2 Chloride 112 H Carbon Dioxide 24.6 BUN 11 Creatinine 0.64 Calcium 8.6 Cardiac Enzymes 08/26/18 Range/Units 09:45 Total Creatine Kinase 310 H (26-192) U/L CK-MB (CK-2) 2.8 (0.5-3.6) ng/mL Troponin I Less than 0.02 L (0.02-0.05) ng/mL Liver Function 08/26/18 Range/Units 09:45 Total Bilirubin 0.3 (0.2-1.0) mg/dL AST 55 H (15-37) U/L ALT 62 H (10-53) U/L Alkaline Phosphatase 123 H (45-117) U/L Albumin 3.8 (3.4-5.0) g/dL Urine 08/26/18 Range/Units 12:15 Urine Color Yellow (Yellw/Straw) Urine Clarity Clear (Clear) Urine pH 6.0 (5.0-8.5) Ur Specific Bayard 1.023 (1.002-1.035) Urine Protein Negative (Neg-Trace) mg/dL Urine Glucose (UA) Negative (Negative) mg/dL <John Cannon L - 08/26/18 17:50> Abnormal lab results 08/26/18 08/26/18 Range/Units 09:45 09:45 MCV 75.2 L (80.0-100.0) fL MCH 24.3 L (27.0-34.0) pg RDW 21.5 H (11.6-17.2) % Baso % (Auto) 2.3 H (0.0-2.0) % Chloride 112 H (98-107) meq/L AST 55 H (15-37) U/L ALT 62 H (10-53) U/L Alkaline Phosphatase 123 H (45-117) U/L Total Creatine Kinase 310 H (26-192) U/L Troponin I Less than 0.02 L (0.02-0.05) ng/mL Total Protein 8.7 H (6.4-8.2) g/dL Short CBC 08/26/18 Range/Units 09:45 WBC 7.2 (4.0-11.0) th/mm3 Hgb 12.7 (11.6-15.3) gm/dL Hct 39.3 (35.0-46.0) % Plt Count 335 (150-450) th/mm3 BMP 08/26/18 09:45 Sodium 144 Potassium 4.2 Chloride 112 H Carbon Dioxide 24.6 BUN 11 Creatinine 0.64 Calcium 8.6 Cardiac Enzymes 08/26/18 Range/Units 09:45 Total Creatine Kinase 310 H (26-192) U/L CK-MB (CK-2) 2.8 (0.5-3.6) ng/mL Troponin I Less than 0.02 L (0.02-0.05) ng/mL Liver Function 08/26/18 Range/Units 09:45 Total Bilirubin 0.3 (0.2-1.0) mg/dL AST 55 H (15-37) U/L ALT 62 H (10-53) U/L Alkaline Phosphatase 123 H (45-117) U/L Albumin 3.8 (3.4-5.0) g/dL <Bailee Kay - 08/26/18 11:15> - Imaging Impressions Hip X-Ray 08/26/18 00:00 CONCLUSION: Unremarkable study. Neck MRA 08/26/18 00:00 CONCLUSION: 1. Negative MRA Carotids. Percent stenosis is calculated using the diameter of the stenotic region over the diameter of the normal distal internal carotid artery Head CT 08/26/18 09:41 CONCLUSION: 1. No significant change compared to the previous examination in December 2011. 2. No acute intracranial abnormality. 3. Minimal scattered chronic periventricular and subcortical white matter small vessel ischemic changes bilaterally. 4. Old lacunar infarct or ischemic change within the left subinsular region. . Head CTA 08/26/18 10:52 CONCLUSION: 1. Suboptimal study probable atherosclerotic changes bilaterally. Neck CTA 08/26/18 10:52 CONCLUSION: 1. Very limited examination since most of the contrast stays within the venous system on the left side filling left IJ and left neck venous plexus. Some degree of venous obstruction is suspected not adequately characterized by this technique may be at the level of the brachiocephalic veins. 2. Hypoplastic right vertebral artery with limited evaluation of the carotid arteries, however they appear grossly intact without any significant stenosis. Entire Spine MRI 08/26/18 11:40 CONCLUSION: 1. Moderate to severe thecal sac stenosis C5-6 and L3-4. 2. Slight overall thecal sac stenosis C4-5 anterior CSF effacement at C3-4. 3. Moderate thecal sac stenosis L5-S1. 4. S1 is partially lumbarized. Head MRI 08/26/18 11:43 CONCLUSION: Chronic small vessel ischemic and atrophic changes. <John Cannon - 08/26/18 17:50> Impressions Head CT 08/26/18 09:41 CONCLUSION: 1. No significant change compared to the previous examination in December 2011. 2. No acute intracranial abnormality. 3. Minimal scattered chronic periventricular and subcortical white matter small vessel ischemic changes bilaterally. 4. Old lacunar infarct or ischemic change within the left subinsular region. . <Bailee Kay - 08/26/18 11:15> Caprini VTE Risk Assessment Caprini VTE Risk Assessment: No/Low Risk (score <= 1) <Bailee Kay - 04/06 17:29> Caprini Risk Assessment Model: Point Value = 1 Point Value = 2 Point Value = 3 Point Value = 5 Age 41-60 Minor surgery BMI > 25 kg/m2 Swollen legs Varicose veins or History of unexplained or recurrent spontaneous Oral contraceptives or hormone replacement Sepsis (< 1 month) Serious lung disease, including pneumonia (< 1 month) Abnormal pulmonary function Acute myocardial infarction Congestive heart failure (< 1 month) History of inflammatory bowel disease Medical patient at bed rest Age 61-74 Arthroscopic surgery Major open surgery (> 45 min) Laparoscopic surgery (> 45 min) Malignancy Confined to bed (> 72 hours) Immobilizing plaster cast Central venous access Age >= 75 History of VTE Family history of VTE Factor V Leiden Prothrombin [id number] Lupus anticoagulant Anticardiolipin antibodies Elevated serum homocysteine Heparin-induced thrombocytopenia Other congenital or acquired thrombophilia Stroke (< 1 month) Elective arthroplasty Hip, pelvis, or leg fracture Acute spinal cord injury (< 1 month) <John Cannon - 08/26/18 17:50> Point Value = 1 Point Value = 2 Point Value = 3 Point Value = 5 Age 41-60 Minor surgery BMI > 25 kg/m2 Swollen legs Varicose veins or History of unexplained or recurrent spontaneous Oral contraceptives or hormone replacement Sepsis (< 1 month) Serious lung disease, including pneumonia (< 1 month) Abnormal pulmonary function Acute myocardial infarction Congestive heart failure (< 1 month) History of inflammatory bowel disease Medical patient at bed rest Age 61-74 Arthroscopic surgery Major open surgery (> 45 min) Laparoscopic surgery (> 45 min) Malignancy Confined to bed (> 72 hours) Immobilizing plaster cast Central venous access Age >= 75 History of VTE Family history of VTE Factor V Leiden Prothrombin [id number] Lupus anticoagulant Anticardiolipin antibodies Elevated serum homocysteine Heparin-induced thrombocytopenia Other congenital or acquired thrombophilia Stroke (< 1 month) Elective arthroplasty Hip, pelvis, or leg fracture Acute spinal cord injury (< 1 month) <Bailee Kay - 08/26/18 11:15> Prophylaxis Regimen: Total Risk Factor Score Risk Level Prophylaxis Regimen 0-1 Low Early ambulation 2 Moderate Order ONE of the following: *Sequential Compression Device (SCD) *Heparin 5000 units SQ BID 3-4 Higher Order ONE of the following medications: *Heparin 5000 units SQ TID *Enoxaparin/Lovenox 40 mg SQ daily (WT < 150 kg, CrCl > 30 mL/min) *Enoxaparin/Lovenox 30 mg SQ daily (WT < 150 kg, CrCl > 10-29 mL/min) *Enoxaparin/Lovenox 30 mg SQ BID (WT < 150 kg, CrCl > 30 mL/min) AND/OR *Sequential Compression Device (SCD) 5 or more Highest Order ONE of the following medications: *Heparin 5000 units SQ TID (Preferred with Epidurals) *Enoxaparin/Lovenox 40 mg SQ daily (WT < 150 kg, CrCl > 30 mL/min) *Enoxaparin/Lovenox 30 mg SQ daily (WT < 150 kg, CrCl > 10-29 mL/min) *Enoxaparin/Lovenox 30 mg SQ BID (WT < 150 kg, CrCl > 30 mL/min) AND *Sequential Compression Device (SCD) <John Cannon - 08/26/18 17:50> Total Risk Factor Score Risk Level Prophylaxis Regimen 0-1 Low Early ambulation 2 Moderate Order ONE of the following: *Sequential Compression Device (SCD) *Heparin 5000 units SQ BID 3-4 Higher Order ONE of the following medications: *Heparin 5000 units SQ TID *Enoxaparin/Lovenox 40 mg SQ daily (WT < 150 kg, CrCl > 30 mL/min) *Enoxaparin/Lovenox 30 mg SQ daily (WT < 150 kg, CrCl > 10-29 mL/min) *Enoxaparin/Lovenox 30 mg SQ BID (WT < 150 kg, CrCl > 30 mL/min) AND/OR *Sequential Compression Device (SCD) 5 or more Highest Order ONE of the following medications: *Heparin 5000 units SQ TID (Preferred with Epidurals) *Enoxaparin/Lovenox 40 mg SQ daily (WT < 150 kg, CrCl > 30 mL/min) *Enoxaparin/Lovenox 30 mg SQ daily (WT < 150 kg, CrCl > 10-29 mL/min) *Enoxaparin/Lovenox 30 mg SQ BID (WT < 150 kg, CrCl > 30 mL/min) AND *Sequential Compression Device (SCD) <Bailee Kay - 08/26/18 11:15> Assessment and Plan - Assessment (1) Left-sided weakness Code(s): R53.1 - Weakness Status: Acute (2) Numbness and tingling Code(s): R20.0 - Anesthesia of skin; R20.2 - Paresthesia of skin Status: Acute (3) Diabetes Code(s): E11.9 - Type 2 diabetes mellitus without complications Status: Acute (4) Osteoarthritis Code(s): M19.90 - Unspecified osteoarthritis, unspecified site Status: Acute (5) Hypertension Code(s): I10 - Essential (primary) hypertension Status: Acute (6) Hepatitis C Code(s): B19.20 - Unspecified viral hepatitis C without hepatic coma Status: Acute (7) Renal disease Code(s): N28.9 - Disorder of kidney and ureter, unspecified Status: Acute (8) Depression Code(s): F32.9 - Major depressive disorder, single episode, unspecified Status : Acute (9) Nutrition, metabolism, and development symptoms Code(s): R63.8 - Other symptoms and signs concerning food and fluid intake Status: Acute <John Cannon - 08/26/18 17:50> (1) Left-sided weakness Code(s): R53.1 - Weakness Status: Acute Plan: Patient presents with acute left-sided weakness of the lower extremities and associated numbness and tingling. Physical exam is remarkable for left-sided weakness in the upper and lower extremities. But during medical interview patient was able to have full range of motion when explaining her HPI. Patient complains of left greater trochanter pain and pain radiating towards the groin. DDX: Worsening osteoarthritis versus CVA versus TIA versus autoimmune versus MS versus rhabdomyolysis versus neuropathy. CK was elevated at 310. Urine analysis unremarkable. Continue to trend. Hip x-rays 4 view ordered. Follow-up MRI of brain, cervical, lumbar, thoracic spine ordered. Follow-up Head CT shows no significant abnormalities. Previous lacunar infarct. Neurochecks every hour. Toradol for pain control. A1C ordered. Follow-up. (2) Numbness and tingling Code(s): R20.0 - Anesthesia of skin; R20.2 - Paresthesia of skin Status: Acute Plan: Possibly due to be due to diabetes neuropathy. A1c ordered. Consider gabapentin therapy. UDS positive for cocaine and marijuana. (3) Diabetes Code(s): E11.9 - Type 2 diabetes mellitus without complications Status: Acute Plan: Hold metformin. Low-dose sliding scale. (4) Osteoarthritis Code(s): M19.90 - Unspecified osteoarthritis, unspecified site Status: Acute Plan: Ketorolac for pain control. (5) Hypertension Code(s): I10 - Essential (primary) hypertension Status: Acute Plan: Continue amlodipine 10 mg daily. Continue lisinopril 10 mg daily. (6) Hepatitis C Code(s): B19.20 - Unspecified viral hepatitis C without hepatic coma Status: Acute Plan: Currently stable. (7) Renal disease Code(s): N28.9 - Disorder of kidney and ureter, unspecified Status: Acute Plan: Patient states that she has renal disease creatinine within normal limits. Continue to monitor. (8) Depression Code(s): F32.9 - Major depressive disorder, single episode, unspecified Status : Acute Plan: Continue Latuda 80 mg daily. (9) Nutrition, metabolism, and development symptoms Code(s): R63.8 - Other symptoms and signs concerning food and fluid intake Status: Acute Plan: Fluids: Normal saline at 140 mils/hour. Electrolytes: Monitor and replete as needed. Diet: Diabetic diet. <Bailee Kay - 08/26/18 17:28> - Assessment and Plan 57-year-old female presents with acute left-sided weakness of the lower extremities with associated numbness and tingling. Stroke workup negative. Patient complains of great left greater trochanter pain. MRI of brain, lumbar, cervical, thoracic spine ordered. Trending elevated CK. UDS positive for cocaine and marijuana. X-ray of hip ordered. <Bailee Kay - 08/26/18 17:24> Discussed Condition With: Dr. Cannon and Dr. Blanton <Bailee Kay - 08/26/18 17:24> - Attending Attestation I was present with resident team for the entire physical exam and history. Agree with documented findings above. Patient with 2 month history of left lower extremity weakness and groin pain. Also with reported numbness of weakness of left upper extremity numbness and weakness. On neurological examination, pain is reproduced in the left hip suggesting possible musculoskeletal source. Also with demonstrable weakness of the left lower extremity on exam. Agree with neurological and musculoskeletal workup. <John Cannon - 08/26/18 17:50>
[2018-08-26] MEDS ORDERED: Bisacodyl 10 MG Supp RECTAL PRN (11:32)
[2018-08-26] MEDS ORDERED: Acetaminophen 325 MG Tablet PO PRN (11:32)
[2018-08-26] MEDS ORDERED: Naloxone Inj 0.4 MG/ML Vial IV.PUSH PRN (11:32)
[2018-08-26] MEDS: amLODIPine 10 MG Tablet PO SCH (12:29)
[2018-08-26] MEDS: Lisinopril 20 MG Tablet PO SCH (12:29)
[2018-08-26 12:36] LABS: Bacteria,Urine Rare /hpf; Bilirubin,Urine Negative (Negative); Clarity,Urine Clear (Clear); Color,Urine Yellow (Yellw/Straw); Glucose,Urine (UA) Negative (Negative); Leukocyte Esterase,Urine Small (Negative); Nitrite,Urine Negative (Negative); Specific Gravity,Urine 1.023 (1.002-1.035); Squamous Epithelial Cell,Urine <1 /hpf (0-5)
[2018-08-26 12:39] LABS: Amphetamine Screen,Urine Neg (Neg); Barbiturate Screen,Urine Neg (Neg); Cannabinoid Screen,Urine Pos (Neg); Cocaine Screen,Urine Pos (Neg)
[2018-08-26 12:40] LABS: Opiate Screen,Urine Neg (Neg)
--- NOTE | 2018-08-26 12:49 | XR ---
EXAM DATE: 08/26/2018 12:41 PM EST AGE/SEX: 57 years / Female INDICATIONS: Severe left hip pain since last night, denies trauma CLINICAL DATA: This is the patient's initial encounter. Patient reports that signs and symptoms have been present for 1 day and indicates a pain score of 10/10. MEDICAL/SURGICAL HISTORY: Arthritis. Stroke. None. COMPARISON: [facility] [place], [facility] ONLY, 12/18/2011. . FINDINGS: No definite fractures, or dislocations are identified. No definite lytic or sclerotic les ion is seen. The joint spaces are well maintained. CONCLUSION: Unremarkable study. Electronically signed by: Alexander Go MD Board Certified Radiologist 08/26/2018 12:47 PM EST
--- NOTE | 2018-08-26 13:05 | CT ---
EXAM DATE: 08/26/2018 12:47 PM EST AGE/SEX: 57 years / Female INDICATIONS: Cephalgia. Tingling and numbness in left leg. CLINICAL DATA: This is the patient's initial encounter. Patient reports that signs and symptoms have been present for 2 months and indicates a pain score of 4/10. MEDICAL/SURGICAL HISTORY: Carcinoma, colon. Diabetes. Hepatitis C. Hypertension. Hysterectomy. RADIATION DOSE: CTDI (mGy) ; Combined studies COMPARISON: [facility] – [place], CT HEAD W/O CONTRAST, 08/26/2018. . TECHNIQUE: Volumetric scanning was performed using a multi-row detector CT scanner during bolus infu ana of 100 ml Omnipaque 350 (iohexol) nonionic water-soluble contrast as a cumulative dose for mult iple exams. The data was post processed with a variety of visualization algorithms including full v olume maximum intensity projection, multi-planar sliding thin slab reformation, curved planar reforma tion, and surface rendering techniques. Using automated exposure control and adjustment of the mA an d/or kV according to patient size, radiation dose was kept as low as reasonably achievable to obtain optimal diagnostic quality images. DICOM format image data is available electronically for review an d comparison. FINDINGS: The examination is limited due to suboptimal bolus of contrast. There are areas of irregularity invol ving bilateral MERARY, MCA branches and parts of the PIPE FOREMAN branches may related to atherosclerotic changes . There is no vessel truncation. CONCLUSION: 1. Suboptimal study probable atherosclerotic changes bilaterally. Electronically signed by: Alexander Go MD Board Certified Radiologist 08/26/2018 1:04 PM EST
--- NOTE | 2018-08-26 13:28 | CT ---
EXAM DATE: 08/26/2018 12:31 PM EST AGE/SEX: 57 years / Female INDICATIONS: Cephalgia. Tingling and numbness in left leg. CLINICAL DATA: This is the patient's initial encounter. Patient reports that signs and symptoms have been present for 2 months and indicates a pain score of 0/10. MEDICAL/SURGICAL HISTORY: Carcinoma, colon. Diabetes. Hepatitis C. Hypertension. Hysterectomy. RADIATION DOSE: 10.74 CTDI (mGy) ; Combined studies [place] [facility]26/2018. . TECHNIQUE: Volumetric scanning was performed using a multirow detector CT scanner during bolus infus ion of 100 ml Omnipaque 350 (iohexol) nonionic water-soluble contrast as a cumulative dose for multi ple exams. The data was postprocessed with a variety of visualization algorithms including full-vol ume maximum intensity projection, multiplanar sliding thin-slab reformation, curved-planar reformatio n, and surface-rendering techniques. Using automated exposure control and adjustment of the mA and/o r kV according to patient size, radiation dose was kept as low as reasonably achievable to obtain opt imal diagnostic quality images. DICOM format image data is available electronically for review and c omparison. Percent stenosis is calculated using the diameter of the stenotic region over the diameter of the nor mal distal internal carotid artery. FINDINGS: The examination is limited since most of the contrast stays in the venous system on the left side inc luding the subclavian vein with reflux into the left IJ and filling of a lot of the left epidural and paraspinal venous plexus. There is some degree of obstruction probably at the level of the brachioce phalic vein or the left subclavian vein not adequately characterized based on this examination. The c ommon carotid arteries and internal carotid arteries are visualized even though there are faintly vis ualized there is no stenosis. The vertebral arteries are basically not visualized and therefore not a dequately characterized, however the left side appears dominant and right-sided hypoplastic. The take off of the major vessels from the arch appears grossly intact. CONCLUSION: 1. Very limited examination since most of the contrast stays within the venous system on the left si de filling left IJ and left neck venous plexus. Some degree of venous obstruction is suspected not ad equately characterized by this technique may be at the level of the brachiocephalic veins. 2. Hypoplastic right vertebral artery with limited evaluation of the carotid arteries, however they appear grossly intact without any significant stenosis. Electronically signed by: Alexander Go MD Board Certified Radiologist 08/26/2018 1:26 PM EST
[2018-08-26] MEDS ORDERED: Dextrose 50% in Water 50 ML Vial IV.PUSH PRN (14:22)
[2018-08-26] MEDS ORDERED: Gadobutrol PF 10 MMOL/10 ML Vial (for RAD) IV.SIG ONE (15:07)
--- NOTE | 2018-08-26 15:25 | MR ---
EXAM DATE: 08/26/2018 3:18 PM EST AGE/SEX: 57 years / Female INDICATIONS: . Left lower extremity numbness. CLINICAL DATA: This is the patient's initial encounter. Patient reports that signs and symptoms have been present for 1 day and indicates a pain score of 3/10. MEDICAL/SURGICAL HISTORY: Hypertension. Diabetes mellitus type II. Carcinoma, colon. Colon re section. jaw surgery COMPARISON: [facility] – [place], CT HEAD W/O CONTRAST, 08/26/2018. . TECHNIQUE: Multiplanar, multisequence examination of the brain was performed without and with 10 ml G adavist (gadobutrol) contrast as a single exam dose. FINDINGS: There is no evidence for intracranial hemorrhage, mass effect, mass lesions, edema, or extra-axial fl uid collections. The ventricles are prominent probably due to atrophic changes. There are no signs of acute infarction for technique. The diffusion portion, and postcontrast portion are unremarkable. Slight degree of brain atrophy is seen. Slight periventricular white matter changes are seen nonspec ific mostly consistent with chronic small vessel ischemic changes. CONCLUSION: Chronic small vessel ischemic and atrophic changes. Electronically signed by: Alexander Go MD Board Certified Radiologist 08/26/2018 3:23 PM EST
--- NOTE | 2018-08-26 15:35 | MR ---
EXAM DATE: 08/26/2018 3:18 PM EST AGE/SEX: 57 years / Female INDICATIONS: . Left lower extremity numbness. CLINICAL DATA: This is the patient's initial encounter. Patient reports that signs and symptoms have been present for 1 day and indicates a pain score of 3/10. MEDICAL/SURGICAL HISTORY: Hypertension. Diabetes mellitus type II. Carcinoma, colon. Colon re section. jaw surgery COMPARISON: No prior exams available for comparison. TECHNIQUE: Screening MRI of the entire spinal axis was performed without and with 10 ml Gadavist (g adobutrol) contrast as a single exam dose in the sagittal and axial planes. FINDINGS: The marrow signal appears intact, and the spinal cord appears intact for technique. S1 appears lumbar ized. Postcontrast portion is unremarkable. C2-C3: No appreciable compromise to the thecal sac, exiting nerve roots are seen. The neural foramin a are patent bilaterally. No appreciable thecal sac stenosis is seen. C3-C4: There is anterior extradural impression and effacement of the anterior CSF space due to bulgin g disc/protrusion and hypertrophic changes, however overall no significant thecal sac stenosis is see n. C4-C5: There is slight overall thecal sac stenosis without any cord compromise due to central disc/o steophyte complex and hypertrophic changes. C5-C6: There is moderate to severe overall thecal sac stenosis with slight flattening of the spinal cord due to central disc/osteophyte complex and hypertrophic changes. C6-C7: There is slight overall thecal sac stenosis without any cord compromise due to central disc/o steophyte complex and hypertrophic changes. C7-T1: No appreciable compromise to the thecal sac, exiting nerve roots are seen. The neural forami na are patent bilaterally. No appreciable thecal sac stenosis is seen. Slight bulging disc and hyper trophic changes are seen with indentation on the thecal sac and no significant compromise to the thec al sac or the exiting nerve roots. T1-T2: No appreciable compromise to the thecal sac, spinal cord, or the exiting nerve roots are seen . The neural foramina are grossly patent bilaterally. T2-T3: No appreciable compromise to the thecal sac, spinal cord, or the exiting nerve roots are seen . The neural foramina are grossly patent bilaterally. T3-T4: No appreciable compromise to the thecal sac, spinal cord, or the exiting nerve roots are seen . The neural foramina are grossly patent bilaterally. T4-T5: No appreciable compromise to the thecal sac, spinal cord, or the exiting nerve roots are seen . The neural foramina are grossly patent bilaterally. T5-T6: No appreciable compromise to the thecal sac, spinal cord, or the exiting nerve roots are seen . The neural foramina are grossly patent bilaterally. Asymmetrical bulging disc is present towards the left with partial extension into the left neural for amen slightly abutting the exiting nerve root. Slight bulging disc and hypertrophic changes are seen with indentation on the thecal sac and no significant compromise to the thecal sac or the exiting ne rve roots. T6-T7: No appreciable compromise to the thecal sac, spinal cord, or the exiting nerve roots are seen . The neural foramina are grossly patent bilaterally. T7-T8: No appreciable compromise to the thecal sac, spinal cord, or the exiting nerve roots are seen . The neural foramina are grossly patent bilaterally. Slight bulging disc and hypertrophic changes are seen with indentation on the thecal sac and no signi ficant compromise to the thecal sac or the exiting nerve roots. T8-T9: No appreciable compromise to the thecal sac, spinal cord, or the exiting nerve roots are seen . The neural foramina are grossly patent bilaterally. Slight bulging disc and hypertrophic changes are seen with indentation on the thecal sac and no signi ficant compromise to the thecal sac or the exiting nerve roots. T9-T10: No appreciable compromise to the thecal sac, spinal cord, or the exiting nerve roots are see n. The neural foramina are grossly patent bilaterally. T10-T11: No appreciable compromise to the thecal sac, spinal cord, or the exiting nerve roots are se en. The neural foramina are grossly patent bilaterally. T11-T12: No appreciable compromise to the thecal sac, spinal cord, or the exiting nerve roots are se en. The neural foramina are grossly patent bilaterally. T12-L1: No appreciable compromise to the thecal sac, spinal cord, or the exiting nerve roots are see n. The neural foramina are grossly patent bilaterally. The most caudal-appearing lumbar vertebra is numbered as L5. The marrow signal appears intact. No si gnificant compression deformities, spondylolisis, or spondylolesthesis is seen. L1-L2: No appreciable compromise to the thecal sac, or the exiting nerve roots is seen. The neural foramina and lateral recesses are patent bilaterally. L2-L3: No appreciable compromise to the thecal sac, or the exiting nerve roots is seen. The neural foramina and lateral recesses are patent bilaterally. L3-L4: There is moderate to severe overall thecal sac stenosis due to central disc/osteophyte comple x/bulging disc and hypertrophic changes. L4-L5: No appreciable compromise to the thecal sac, or the exiting nerve roots is seen. The neural foramina and lateral recesses are patent bilaterally. Slight bulging disc and hypertrophic changes a re seen with indentation on the thecal sac and no significant compromise to the thecal sac or the exi ting nerve roots. L5-S1: There is moderate overall thecal sac stenosis due to central disc/osteophyte complex and hype rtrophic changes. CONCLUSION: 1. Moderate to severe thecal sac stenosis C5-6 and L3-4. 2. Slight overall thecal sac stenosis C4-5 anterior CSF effacement at C3-4. 3. Moderate thecal sac stenosis L5-S1. 4. S1 is partially lumbarized. Electronically signed by: Alexander Go MD Board Certified Radiologist 08/26/2018 3:33 PM EST
--- NOTE | 2018-08-26 15:36 | MR ---
EXAM DATE: 08/26/2018 3:22 PM EST AGE/SEX: 57 years / Female INDICATIONS: . Abnormal CT. Left lower extremity numbness. CLINICAL DATA: This is the patient's initial encounter. Patient reports that signs and symptoms have been present for 1 day and indicates a pain score of 3/10. MEDICAL/SURGICAL HISTORY: Hypertension. Diabetes mellitus type II. Carcinoma, colon. Colon re section. jaw surgery COMPARISON: [facility], CTA NECK W CONTRAST W 3D, 08/26/2018. . TECHNIQUE: 10 ml Gadavist (gadobutrol) contrast infused MRA (single exam dose) of the extracranial circulation was performed using a neurovascular coil. Postprocessing was performed, including rotati ng sub-volume maximum intensity projections of each carotid artery, rotating full-volume maximum inte nsity projections of both carotid arteries, sagittal and coronal sliding thin-slab reformations of ea ch carotid artery, and left oblique sliding thin-slab reformation through the aortic arch to include the origin of the arch branch vessels. FINDINGS: Aortic Arch : There is a three-vessel origin of the great vessels from the aorta. No evidence of o stial narrowing. Right Carotid : The common carotid artery is intact. The carotid bulb has a normal configuration wi thout ulceration or narrowing. The internal carotid artery lumen is smooth without stenosis. The ex ternal carotid artery is intact. Left Carotid : The common carotid artery is intact. The carotid bulb has a normal configuration wit hout ulceration or narrowing. The internal carotid artery lumen is smooth without stenosis. The ext ernal carotid artery is intact. Vertebrals : The vertebral arteries have a symmetric diameter. No stenotic lesions are seen. CONCLUSION: 1. Negative MRA Carotids. Percent stenosis is calculated using the diameter of the stenotic region over the diameter of the nor mal distal internal carotid artery Electronically signed by: Isidro Nash MD Board Certified Radiologist 08/26/2018 3:35 PM EST
--- NOTE | 2018-08-26 16:47 | P.CONNEU ---
History of Present Illness Service: Neurology Primary Care Provider: Dr Tr Schmidt Chief Complaint: Leg weakness History of Present Illness: 57-year-old female admitted for left leg weakness. Onset 2 months ago off and on pain in left hip. Mild low back pain with occasional radicular symptomatology. Numbness tingling paresthesias on left thigh. Denies any symptoms in the right leg with the arms. Takes baclofen as needed Review of Systems All other systems reviewed negative except as stated in HPI PMFSH - History History Provided By: Patient, [employer] / EMT - Medical History Medical History: Medical History (Last Reviewed 08/26/18 @ 09:52 by Jannet Thomas) Arthritis Bipolar 1 disorder Cataract Colon cancer Diabetes Full dentures GERD (gastroesophageal reflux disease) Gout Hepatitis C Hx of hysterectomy Hypertension Osteoarthritis - Surgical History Surgical History: Surgical History (Last Reviewed 08/26/18 @ 09:52 by Jannet Thomas) H/O total hysterectomy - Tobacco History Second Hand Smoke Exposure: No Smoking Status: Never smoker Tobacco Type: Cigarettes - Alcohol History How Often Do You Have a Drink Containing Alcohol: 2 to 4 times a month - Substance Use History Substance History: Active Abuse - Substance Use Type Marijuana Status: Active Route Used: Inhalation Frequency: twice a week Comment: helps with pain - Travel History Recent Travel in the [place] Within the Last 8 Weeks: No Recent Travel Out of the Country Within the Last 8 Weeks: No - Immunization History Tetanus Immunization: Unsure Medications and Allergies Active Medications: Active Medications Acetaminophen (Tylenol) 650 mg PO Q4H PRN PRN Reason: Temp > 100.4 Al Hydroxide/Mg Hydroxide (Milk Of Magnkiesha Liq) 30 ml PO Q12H PRN PRN Reason: Mild Constipation Amlodipine Besylate (Norvasc) 10 mg PO DAILY [facility] Last Admin: 08/26/18 12:29 Dose: 10 mg Ascorbic Acid (Vitamin C) 500 mg PO DAILY [facility] Bisacodyl (Dulcolax Supp) 10 mg RECTAL DAILY PRN PRN Reason: SEVERE CONSITIPATION Dextrose (D50w Vial) 50 ml IV.PUSH UNSCH PRN PRN Reason: PER HYPOGLYCEMIA PROTOCOL Glucagon (Glucagon Inj) 1 mg OTHER PRN PRN PRN Reason: for Hypoglycemia Protocol Sodium Chloride (Ns Inj) 1,000 mls @ 140 mls/hr IV.CONT .Q7H9M [facility] Insulin Aspart (Novolog Insulin Correctional Sugar Inj) 0 unit SQ ACHS AND 3AM TODD; Protocol Ketorolac Tromethamine (Toradol Inj) 15 mg IV.PUSH Q6H PRN PRN Reason: PAIN 3-5; IF UABLE TO TAKE PO Stop: 08/31/18 11:31 Lactulose (Lactulose Liq) 30 ml PO DAILY PRN PRN Reason: SEVERE CONSITIPATION Lisinopril (Prinivil) 10 mg PO DAILY [facility] Last Admin: 08/26/18 12:29 Dose: 10 mg Lurasidone HCl (Latuda) 80 mg PO DAILY [facility] Naloxone HCl (Narcan Inj) 0.4 mg IV.PUSH UNSCH PRN PRN Reason: SEE LABEL COMMENTS Ondansetron HCl (Zofran Inj) 4 mg IV.PUSH Q6H PRN PRN Reason: NAUSEA OR VOMITING Senna/Docusate Sodium (Darleen-Colace) 1 tab PO BID [facility] Sennosides (Senokot) 17.2 mg PO Q12H PRN PRN Reason: Moderate Constipation Sodium Chloride (Ns Flush) 2 ml IV.FLUSH PRN PRN PRN Reason: FLUSH AFTER USING IV ACCESS Sodium Chloride (Ns Flush) 2 ml IV.FLUSH BID [facility] Sodium Chloride (Ns Flush) 2 ml IV.FLUSH PRN PRN PRN Reason: FLUSH AFTER USING IV ACCESS Allergies Allergy/AdvReac Type Severity Reaction Status Date / Time No Known Allergies Allergy Verified 03/06/18 13:42 Home Medications Medication Instructions Recorded Confirmed Type amlodipine 10 mg PO DAILY 03/04/18 08/26/18 History baclofen 20 mg PO BID 03/04/18 08/26/18 History lisinopril 10 mg PO DAILY 03/04/18 08/26/18 History metformin 500 mg PO DAILY 03/04/18 08/26/18 History ascorbic acid (vitamin C) [Vitamin 500 mg PO DAILY 08/26/18 08/26/18 History C] diphenhydramine HCl [Benadryl] 25 mg PO Q4-6H PRN 08/26/18 08/26/18 History guaifenesin 400 mg PO Q4H PRN 08/26/18 08/26/18 History lurasidone [Latuda] 80 mg PO DAILY 08/26/18 08/26/18 History trazodone 100 mg PO DAILY 08/26/18 08/26/18 History Exam Vital signs: Vital Signs 08/26/18 09:24 08/26/18 09:30 08/26/18 09:43 Temperature 98.0 F Pulse Rate 76 72 Respiratory Rate 24 21 Blood Pressure 184/110 H Pulse Oximetry 100 99 98 08/26/18 10:04 08/26/18 12:13 Temperature Pulse Rate 82 65 Respiratory Rate 16 Blood Pressure 170/93 H Pulse Oximetry 96 Intake & Output 08/25/18 08/26/18 08/26/18 18:59 06:59 18:59 Weight 99.79 kg Narrative: Awake alert oriented x3 lying on the phone comfortably speaking on the cell phone when I came in. No aphasia, face symmetric. Thereafter she began developing pain in her left leg. Pain with passive manipulation internal/ external rotation of the leg. Upper extremities and 5 out of 5 lower extremity in the right raise all extremity gravity however left leg some mild weakness with left hip flexion. Allodynia mild hyperpathia in the left thigh region knee region and pinprick gait not assessed secondary follow-up risk reflexes trace to 1+ plantarflexion no Results - Labs CBC & Chem 7: 08/26/18 09:45 08/26/18 09:45 Labs: Laboratory Results - last 24 hr 08/26/18 08/26/18 08/26/18 09:45 09:45 09:45 WBC 7.2 RBC 5.23 Hgb 12.7 Hct 39.3 MCV 75.2 L MCH 24.3 L MCHC 32.4 RDW 21.5 H Plt Count 335 MPV 7.6 Neut % (Auto) 57.6 Lymph % (Auto) 32.8 Hanson % (Auto) 6.2 Eos % (Auto) 1.1 Baso % (Auto) 2.3 H Neut # (Auto) 4.2 Lymph # (Auto) 2.4 Hanson # (Auto) 0.4 Eos # (Auto) 0.1 Baso # (Auto) 0.2 WBC Differential . Differential Comment Auto diff final PT 10.9 INR 1.1 APTT 25.0 Sodium 144 Potassium 4.2 Chloride 112 H Carbon Dioxide 24.6 Anion Gap 7 BUN 11 Creatinine 0.64 Estimated GFR Greater than 89 Random Glucose 101 Calcium 8.6 Total Bilirubin 0.3 AST 55 H ALT 62 H Alkaline Phosphatase 123 H Total Creatine Kinase 310 H CK-MB (CK-2) 2.8 CK-MB (CK-2) % 0.9 Troponin I Less than 0.02 L Total Protein 8.7 H Albumin 3.8 Urine Color Urine Clarity Urine pH Ur Specific [place] Urine Protein Urine Glucose (UA) Urine Ketones Urine Occult Blood Urine Nitrate Urine Bilirubin Urine Urobilinogen Ur Leukocyte Esterase Urine RBC Ur Squamous Epith Cells Urine Bacteria Micro UA Comment Ur Microscopic Review Urine Culture Comments Urine Opiates Screen Ur Barbiturates Screen Ur Amphetamines Screen U Benzodiazepines Scrn Urine Cocaine Screen U Cannabinoids Screen 08/26/18 08/26/18 12:15 12:15 WBC RBC Hgb Hct MCV MCH MCHC RDW Plt Count MPV Neut % (Auto) Lymph % (Auto) Hans[place] % (Auto) Eos % (Auto) Baso % (Auto) Neut # (Auto) Lymph # (Auto) [place] # (Auto) Eos # (Auto) Baso # (Auto) WBC Differential Differential Comment PT INR APTT Sodium Potassium Chloride Carbon Dioxide Anion Gap BUN Creatinine Estimated GFR Random Glucose Calcium Total Bilirubin AST ALT Alkaline Phosphatase Total Creatine Kinase CK-MB (CK-2) CK-MB (CK-2) % Troponin I Total Protein Albumin Urine Color Yellow Urine Clarity Clear Urine pH 6.0 Ur Specific [place] 1.023 Urine Protein Negative Urine Glucose (UA) Negative Urine Ketones Negative Urine Occult Blood Negative Urine Nitrate Negative Urine Bilirubin Negative Urine Urobilinogen Less than 2 Ur Leukocyte Esterase Small H Urine RBC 3 Ur Squamous Epith Cells <1 Urine Bacteria Rare H Micro UA Comment Culture not ind Ur Microscopic Review Not Reportable Urine Culture Comments Culture not ind Urine Opiates Screen Neg Ur Barbiturates Screen Neg Ur Amphetamines Screen Neg U Benzodiazepines Scrn Neg Urine Cocaine Screen Pos H U Cannabinoids Screen Pos H - Imaging Impressions Hip X-Ray 08/26/18 00:00 CONCLUSION: Unremarkable study. Neck MRA 08/26/18 00:00 CONCLUSION: 1. Negative MRA Carotids. Percent stenosis is calculated using the diameter of the stenotic region over the diameter of the normal distal internal carotid artery Head CT 08/26/18 09:41 CONCLUSION: 1. No significant change compared to the previous examination in December 2011. 2. No acute intracranial abnormality. 3. Minimal scattered chronic periventricular and subcortical white matter small vessel ischemic changes bilaterally. 4. Old lacunar infarct or ischemic change within the left subinsular region. . Head CTA 08/26/18 10:52 CONCLUSION: 1. Suboptimal study probable atherosclerotic changes bilaterally. Neck CTA 08/26/18 10:52 CONCLUSION: 1. Very limited examination since most of the contrast stays within the venous system on the left side filling left IJ and left neck venous plexus. Some degree of venous obstruction is suspected not adequately characterized by this technique may be at the level of the brachiocephalic veins. 2. Hypoplastic right vertebral artery with limited evaluation of the carotid arteries, however they appear grossly intact without any significant stenosis. Entire Spine MRI 08/26/18 11:40 CONCLUSION: 1. Moderate to severe thecal sac stenosis C5-6 and L3-4. 2. Slight overall thecal sac stenosis C4-5 anterior CSF effacement at C3-4. 3. Moderate thecal sac stenosis L5-S1. 4. S1 is partially lumbarized. Head MRI 08/26/18 11:43 CONCLUSION: Chronic small vessel ischemic and atrophic changes. Review/Management - Diagnosis (1) Lumbar radiculopathy Code(s): M54.16 - Radiculopathy, lumbar region Status: Acute Current Visit: Yes - Review/Management Plan: Chronic left lower extremity weakness. Concurrent with the medical team possibly related to bursitis, osteoarthritis/bursitis of the left hip versus a left L3-4 radiculopathy versus left femoral neuropathy Imaging reviewed. Mild areas of stenosis in the cervical lumbar region MRI brain no acute stroke mild periventricular white matter changes not suggestive of any demyelinating lesion Recommendation suggest imaging of the left hip. If this is positive consider orthopedic evaluation If it is negative would suggest outpatient evaluation with physical medicine at [facility] for EMG nerve conduction study of her back and left leg Pain control; trial gabapentin She could consider evaluation pain management for FRENCH She also can see neurosurgery outpatient physical therapy pain management are ineffective for her symptoms Weight reduction, exercise, stretching Sign off
[2018-08-26] MEDS: Ketorolac Inj 30 MG/ML (IVP) Vial IV.PUSH PRN ×2 (17:23→21:32)
[2018-08-26] MEDS: Gabapentin 100 MG Capsule PO SCH (17:23)
[2018-08-26] MEDS: Sod Chloride 0.9% Inj 1,000 ML IV.CONT SCH (17:27)
[2018-08-26] MEDS: Insulin NovoLOG Aspart Correctional Sugar Inj SQ SCH ×2 (20:17→21:33)
[2018-08-26] MEDS: Ascorbic Acid 500 MG Tablet PO SCH (20:18)
[2018-08-26] MEDS: Lurasidone 80 MG Tablet PO SCH (20:18)
[2018-08-26] MEDS: Senna/Docusate Sodium 8.6/50 MG Tablet PO SCH (21:32)
[2018-08-27] MEDS: Sod Chloride 0.9% Inj 1,000 ML IV.CONT SCH ×4 (01:11→21:51)
[2018-08-27] MEDS: Insulin NovoLOG Aspart Correctional Sugar Inj SQ SCH ×5 (04:48→21:51)
[2018-08-27 07:52] LABS: Baso # (Auto) 0.1 th/mm3 (0.0-0.2); Baso % (Auto) 0.9 % (0.0-2.0); Eos # (Auto) 0.3 th/mm3 (0.0-0.4); Eos % (Auto) 3.9 % (0.0-4.0); Hematocrit 34.7 % (35.0-46.0); Hemoglobin 11.1 gm/dL (11.6-15.3); Lymph # (Auto) 2.7 th/mm3 (1.0-4.8); Lymph % (Auto) 38.5 % (9.0-44.0); Mean Corpuscular Hemoglobin 24.2 pg (27.0-34.0); Mean Corpuscular Volume 75.7 fL (80.0-100.0); Mean Platelet Volume 7.9 fL (7.0-11.0); Mono # (Auto) 0.6 th/mm3 (0.0-0.9); Mono % (Auto) 8.2 % (0.0-8.0); Neut # (Auto) 3.4 th/mm3 (1.8-7.7); Neut % (Auto) 48.5 % (16.0-70.0); Platelet Count 269 th/mm3 (150-450); Red Blood Count 4.58 mil/mm3 (4.00-5.30); Red Cell Distribution Width 20.8 % (11.6-17.2); White Blood Count 6.9 th/mm3 (4.0-11.0)
[2018-08-27 08:26] LABS: Alanine Aminotransferase 46 U/L (10-53); Albumin 2.9 g/dL (3.4-5.0); Alkaline Phosphatase 94 U/L (45-117); Anion Gap 7 meq/L (5-15); Aspartate Aminotransferase 47 U/L (15-37); Blood Urea Nitrogen 13 mg/dL (7-18); Calcium 8.3 mg/dL (8.5-10.1); Carbon Dioxide 24.7 meq/L (21.0-32.0); Chloride 109 meq/L (98-107); Creatine Kinase 159 U/L (26-192); Glomerular Filtration Rate Greater Than 89 mL/min (>89); Glucose,Random 82 mg/dL (74-106); Potassium 3.4 meq/L (3.5-5.1); Sodium 141 meq/L (136-145); Total Protein 6.7 g/dL (6.4-8.2)
[2018-08-27] MEDS: Gabapentin 100 MG Capsule PO SCH ×3 (08:32→17:28)
[2018-08-27] MEDS: Ascorbic Acid 500 MG Tablet PO SCH (08:32)
[2018-08-27] MEDS: Lurasidone 80 MG Tablet PO SCH (08:32)
[2018-08-27] MEDS: amLODIPine 10 MG Tablet PO SCH (08:32)
[2018-08-27] MEDS: Senna/Docusate Sodium 8.6/50 MG Tablet PO SCH ×2 (08:33→21:52)
[2018-08-27] MEDS: Lisinopril 20 MG Tablet PO SCH (08:33)
[2018-08-27] MEDS: Ketorolac Inj 30 MG/ML (IVP) Vial IV.PUSH PRN ×2 (08:33→21:46)
--- NOTE | 2018-08-27 11:26 | P.PNFP ---
Subjective Interval history: Patient seen and examined this morning. Patient reports no changes in pain in left leg. Notes improved range of motion and strength. Patient denies nausea, vomiting, fever, chills abdominal pain, chest pain, shortness of breath, lightheadedness, dizziness, numbness or tingling in hands or feet. No other complaints today. <John Diaz - 08/27/18 11:25> Results - Labs Result diagrams: 08/28/18 05:36 08/28/18 05:36 <John Cannon - 08/28/18 15:26> Abnormal lab results 08/27/18 08/28/18 08/28/18 Range/Units 21:47 05:36 05:36 MCV 76.0 L (80.0-100.0) fL MCH 23.8 L (27.0-34.0) pg MCHC 31.4 L (32.0-36.0) % RDW 20.7 H (11.6-17.2) % [place] % (Auto) 8.4 H (0.0-8.0) % Eos % (Auto) 6.1 H (0.0-4.0) % POC Glucose 114 H (68-110) mg/dl AST 41 H (15-37) U/L Albumin 3.0 L (3.4-5.0) g/dL Short CBC 08/28/18 Range/Units 05:36 WBC 6.7 (4.0-11.0) th/mm3 Hgb 11.8 (11.6-15.3) gm/dL Hct 37.6 (35.0-46.0) % Plt Count 284 (150-450) th/mm3 [facility] 08/28/18 05:36 Sodium 140 Potassium 3.6 Chloride 107 Carbon Dioxide 26.3 BUN 15 Creatinine 0.65 Calcium 8.7 Liver Function 08/28/18 Range/Units 05:36 Total Bilirubin 0.2 (0.2-1.0) mg/dL AST 41 H (15-37) U/L ALT 49 (10-53) U/L Alkaline Phosphatase 107 (45-117) U/L Albumin 3.0 L (3.4-5.0) g/dL <John Cannon - 08/28/18 15:26> Abnormal lab results 0108/26/18 08/26/18 Range/Units 12:15 12:15 20:23 Hgb (11.6-15.3) gm/dL Hct (35.0-46.0) % MCV (80.0-100.0) fL MCH (27.0-34.0) pg RDW (11.6-17.2) % [place] % (Auto) (0.0-8.0) % Potassium (3.5-5.1) meq/L Chloride (98-107) meq/L POC Glucose 172 H (68-110) mg/dl Calcium (8.5-10.1) mg/dL AST (15-37) U/L Albumin (3.4-5.0) g/dL Ur Leukocyte Esterase Small H (Negative) Urine Bacteria Rare H (None) /hpf Urine Cocaine Screen Pos H (Neg) U Cannabinoids Screen Pos H (Neg) 08/27/18 08/27/18 Range/Units 06:09 06:09 Hgb 11.1 L (11.6-15.3) gm/dL Hct 34.7 L (35.0-46.0) % MCV 75.7 L (80.0-100.0) fL MCH 24.2 L (27.0-34.0) pg RDW 20.8 H (11.6-17.2) % [place] % (Auto) 8.2 H (0.0-8.0) % Potassium 3.4 L D (3.5-5.1) meq/L Chloride 109 H (98-107) meq/L POC Glucose (68-110) mg/dl Calcium 8.3 L (8.5-10.1) mg/dL AST 47 H (15-37) U/L Albumin 2.9 L D (3.4-5.0) g/dL Ur Leukocyte Esterase (Negative) Urine Bacteria (None) /hpf Urine Cocaine Screen (Neg) U Cannabinoids Screen (Neg) Short CBC 08/27/18 Range/Units 06:09 WBC 6.9 (4.0-11.0) th/mm3 Hgb 11.1 L (11.6-15.3) gm/dL Hct 34.7 L (35.0-46.0) % Plt Count 269 (150-450) th/mm3 BMP 08/27/18 06:09 Sodium 141 Potassium 3.4 L D Chloride 109 H Carbon Dioxide 24.7 BUN 13 Creatinine 0.60 Calcium 8.3 L Cardiac Enzymes 08/27/18 Range/Units 06:09 Total Creatine Kinase 159 (26-192) U/L Liver Function 08/27/18 Range/Units 06:09 Total Bilirubin 0.4 (0.2-1.0) mg/dL AST 47 H (15-37) U/L ALT 46 (10-53) U/L Alkaline Phosphatase 94 (45-117) U/L Albumin 2.9 L D (3.4-5.0) g/dL Urine 08/26/18 Range/Units 12:15 Urine Color Yellow (Yellw/Straw) Urine Clarity Clear (Clear) Urine pH 6.0 (5.0-8.5) Ur Specific [place] 1.023 (1.002-1.035) Urine Protein Negative (Neg-Trace) mg/dL Urine Glucose (UA) Negative (Negative) mg/dL <John Diaz - 08/27/18 11:25> - Imaging Impressions Hip X-Ray 08/26/18 00:00 CONCLUSION: Unremarkable study. Neck MRA 08/26/18 00:00 CONCLUSION: 1. Negative MRA Carotids. Percent stenosis is calculated using the diameter of the stenotic region over the diameter of the normal distal internal carotid artery Head CT 08/26/18 09:41 CONCLUSION: 1. No significant change compared to the previous examination in December 2011. 2. No acute intracranial abnormality. 3. Minimal scattered chronic periventricular and subcortical white matter small vessel ischemic changes bilaterally. 4. Old lacunar infarct or ischemic change within the left subinsular region. . Head CTA 08/26/18 10:52 CONCLUSION: 1. Suboptimal study probable atherosclerotic changes bilaterally. Neck CTA 08/26/18 10:52 CONCLUSION: 1. Very limited examination since most of the contrast stays within the venous system on the left side filling left IJ and left neck venous plexus. Some degree of venous obstruction is suspected not adequately characterized by this technique may be at the level of the brachiocephalic veins. 2. Hypoplastic right vertebral artery with limited evaluation of the carotid arteries, however they appear grossly intact without any significant stenosis. Entire Spine MRI 08/26/18 11:40 CONCLUSION: 1. Moderate to severe thecal sac stenosis C5-6 and L3-4. 2. Slight overall thecal sac stenosis C4-5 anterior CSF effacement at C3-4. 3. Moderate thecal sac stenosis L5-S1. 4. S1 is partially lumbarized. Head MRI 08/26/18 11:43 CONCLUSION: Chronic small vessel ischemic and atrophic changes. <John Diaz - 08/27/18 11:25> Physical Exam Vital signs: Vital Signs 08/27/18 15:55 08/27/18 21:27 08/28/18 01:13 Temperature 98.0 F 98.0 F 98.0 F Pulse Rate 65 59 L 63 Respiratory Rate 20 20 20 Blood Pressure 145/82 H 162/93 H 163/81 H Pulse Oximetry 98 99 98 08/28/18 04:20 08/28/18 04:27 08/28/18 07:55 Temperature 97.9 F 98.1 F Pulse Rate 58 L 64 Respiratory Rate 18 20 20 Blood Pressure 143/95 H 167/95 H Pulse Oximetry 96 95 08/28/18 09:46 08/28/18 14:00 Temperature Pulse Rate Respiratory Rate 16 Blood Pressure 161/81 H Pulse Oximetry Intake & Output 08/27/18 08/28/18 08/28/18 18:59 06:59 18:59 Intake Total 1000 / 1000 1000 / 1000 Balance 1000 / 1000 1000 / 1000 Weight 101.1 kg Intake: IV 1000 / 1000 1000 / 1000 NS Inj 1,000 ML @ 140 mls/hr IV 1000 / 1000 1000 / 1000 .CONT .Q7H9M [facility] Rx#:[id number] Other: # Voids 2 Date of Last Bowel Movement 08/26/18 <John Cannon L - 08/28/18 15:26> Vital Signs 08/26/18 12:13 08/26/18 20:30 08/27/18 01:11 Temperature 98.1 F 97.8 F Pulse Rate 65 73 63 Respiratory Rate 16 20 20 Blood Pressure 170/93 H 143/73 H 148/76 H Pulse Oximetry 96 97 100 08/27/18 04:37 08/27/18 08:00 08/27/18 08:23 Temperature 97.7 F 97.8 F 97.8 F Pulse Rate 53 L 61 61 Respiratory Rate 20 20 20 Blood Pressure 145/61 H 143/88 H 143/88 H Pulse Oximetry 98 97 97 Intake & Output 08/26/18 08/27/18 08/27/18 18:59 06:59 18:59 Intake Total 1849 Balance 1849 Weight 99.79 kg 99.3 kg Intake: IV 1849 NS Inj 1,000 ML @ 140 mls/hr IV 1849 .CONT .Q7H9M [facility] Rx#:[id number] Other: # Voids 2 Date of Last Bowel Movement 08/26/18 08/26/18 <Harvinder LewisJohn - 08/27/18 11:25> Narrative: GENERAL: Overweight appearing female, sitting in examination bed. SKIN: Warm and dry. HEAD: Normocephalic. EYES: No scleral icterus. No injection or drainage. NECK: Supple, trachea midline. No JVD or lymphadenopathy. CARDIOVASCULAR: Grade 2 out of 5 systolic murmur appreciated at the left sternal border. No radiation. Regular rate. RESPIRATORY: Breath sounds equal bilaterally. No accessory muscle use. GASTROINTESTINAL: Abdomen soft, non-tender, nondistended. MUSCULOSKELETAL: No cyanosis, or edema. Cranial nerves grossly intact. 5 out of 5 strength in the right upper and lower extremities. 5 out of 5 strength in the left upper extremity. 4/5 in left lower extreme. Sensation intact bilaterally. Tenderness to palpation of the left greater trochanter region. BACK: Nontender without obvious deformity. No CVA tenderness. <Harvinder LewisJohn - 08/27/18 11:25> Assessment and Plan - Assessment (1) Left-sided weakness Code(s): R53.1 - Weakness Status: Acute (2) Numbness and tingling Code(s): R20.0 - Anesthesia of skin; R20.2 - Paresthesia of skin Status: Acute (3) Diabetes Code(s): E11.9 - Type 2 diabetes mellitus without complications Status: Acute (4) Osteoarthritis Code(s): M19.90 - Unspecified osteoarthritis, unspecified site Status: Acute (5) Hypertension Code(s): I10 - Essential (primary) hypertension Status: Acute (6) Hepatitis C Code(s): B19.20 - Unspecified viral hepatitis C without hepatic coma Status: Acute (7) Renal disease Code(s): N28.9 - Disorder of kidney and ureter, unspecified Status: Acute (8) Depression Code(s): F32.9 - Major depressive disorder, single episode, unspecified Status : Acute (9) Nutrition, metabolism, and development symptoms Code(s): R63.8 - Other symptoms and signs concerning food and fluid intake Status: Acute <DavisJohn Antonietta - 08/28/18 15:26> (1) Left-sided weakness Code(s): R53.1 - Weakness Status: Acute Plan: Patient initially with left-sided weakness. Left upper weakness resolved. Mild left lower weakness. -Hip x-rays were within normal limits -Spinal MRI with a very degrees of thecal sac stenosis -Head CT with no significant abnormalities -Head MRI with chronic small vessel ischemic and atrophic changes -Neurochecks -Neurology recommends imaging of left hip, orthopedic evaluation if positive, if negative outpatient eval with physical medicine at [facility] for EMG nerve conduction study of her back left leg, signed off (2) Numbness and tingling Code(s): R20.0 - Anesthesia of skin; R20.2 - Paresthesia of skin Status: Acute Plan: Possibly due to be due to diabetes neuropathy.UDS positive for cocaine and marijuana. Improved today. -Gabapentin (3) Diabetes Code(s): E11.9 - Type 2 diabetes mellitus without complications Status: Acute Plan: Hold metformin. Low-dose sliding scale. (4) Osteoarthritis Code(s): M19.90 - Unspecified osteoarthritis, unspecified site Status: Acute Plan: Ketorolac for pain control. (5) Hypertension Code(s): I10 - Essential (primary) hypertension Status: Acute Plan: Continue amlodipine 10 mg daily. Continue lisinopril 10 mg daily. (6) Hepatitis C Code(s): B19.20 - Unspecified viral hepatitis C without hepatic coma Status: Acute Plan: Currently stable. (7) Renal disease Code(s): N28.9 - Disorder of kidney and ureter, unspecified Status: Acute Plan: Patient states that she has renal disease creatinine within normal limits. Continue to monitor. (8) Depression Code(s): F32.9 - Major depressive disorder, single episode, unspecified Status : Acute Plan: Continue Latuda 80 mg daily. (9) Nutrition, metabolism, and development symptoms Code(s): R63.8 - Other symptoms and signs concerning food and fluid intake Status: Acute Plan: Fluids: Tolerating p.o. Electrolytes: Monitor and replete as needed. Diet: Diabetic diet. <John Diaz - 08/27/18 11:17> - Assessment and Plan 57-year-old female presents with acute left-sided weakness of the lower extremities with associated numbness and tingling. Stroke workup negative. Patient complains of great left greater trochanter pain. MRI of brain, lumbar, cervical, thoracic spine ordered. Trending elevated CK. UDS positive for cocaine and marijuana. <John Diaz - 08/27/18 11:25> - Attending Attestation Patient seen and examined with resident team this morning. Agree with documentation above. Patient with left lower leg weakness, workup for stroke is negative. Possibly related to spinal stenosis. Recommended NCS/EMG as an outpatient to assess severity of motor weakness. Today her RLE strength improved from 2/5 to 4/5. Left upper extremity without weakness today. <John Cannon - 08/28/18 15:26>
[2018-08-27] MEDS ORDERED: Gadobutrol PF 10 MMOL/10 ML Vial (for RAD) IV.SIG ONE (11:43)
--- NOTE | 2018-08-27 11:53 | MR ---
EXAM DATE: 08/27/2018 11:44 AM EST AGE/SEX: 57 years / Female INDICATIONS: . Left hip pain. CLINICAL DATA: This is the patient's subsequent encounter. Patient reports that signs and symptoms h ave been present for 3 days and indicates a pain score of 6/10. MEDICAL/SURGICAL HISTORY: Hypertension. Diabetes. Carcinoma, colon. . Abdominal surgery. Jaw surgery. COMPARISON: No prior exams available for comparison. TECHNIQUE: Multiplanar, multisequence MRI examination was performed without contrast and after th e intravenous administration of 10 ml Gadavist (gadobutrol) contrast as a single exam dose. FINDINGS: Bone Marrow: There is homogeneous signal in the marrow of the proximal femora and pelvis. The femor al heads are normal in contour. No evidence of osteonecrosis or fracture. Effusion: None. Acetabular Labrum: Normal shape without evidence of tear. Bursa: No evidence of trochanteric or iliopsoas bursitis. Articular Cartilage: Normal contour and thickness. Muscles and Tendons: No evidence of tear or strain in the muscles groups about the hip. The tendons about the hip are intact. Other Soft Tissues: No evidence of soft tissue mass. Post Contrast: There are no abnormal areas of enhancement in the marrow, muscle, or soft tissues on images obtained after intravenous administration of gadolinium. CONCLUSION: 1. Negative MRI of the left hip. I do not see an etiology for the patient's left hip pain. 2. There is no cough fracture or joint effusion. 3. Both SI joints appear normal. Electronically signed by: Holden Lopez MD Board Certified Radiologist 08/27/2018 11:51 AM EST
--- NOTE | 2018-08-27 15:01 | P.DCO ---
- Physical Therapy Order: Evaluate and treat, Improve ambulation, Strength and gait training - Home Health Nursing Order: Medical education, Signs/symptoms of disease process, Nursing assessment with vital signs - Case Management Consult Case Management Consult-Home Health: Yes - Certification I have seen patient Grace Chowdary on 08/27/18. My clinical findings support the need for the requested home health care services because: Limited mobility due to disease progression, Deconditioned with increased weakness, Limited ability to care for self I certify that my clinical findings support that this patient is homebound because: Unsteady gait/balance
--- NOTE | 2018-08-27 23:27 | ECG ---
Date Performed: 08/26/2018 Time Performed: 09:53:41 PTAGE: 57 years EKG: Sinus rhythm POSSIBLE LEFT ATRIAL ENLARGEMENT NONSPECIFIC ST & T-WAVE ABNORMALITY BORDERLINE ECG PREVIOUS TRACING : 03/06/2018 13.04 Since the previous tracing, no significant change noted DOCTOR: Issac Ware Interpretating Date/Time 08/27/2018 23:25:51
[2018-08-28] MEDS: Sod Chloride 0.9% Inj 1,000 ML IV.CONT SCH ×2 (04:43→09:08)
[2018-08-28] MEDS: Insulin NovoLOG Aspart Correctional Sugar Inj SQ SCH ×3 (04:44→12:02)
[2018-08-28 06:39] LABS: Baso # (Auto) 0.1 th/mm3 (0.0-0.2); Baso % (Auto) 1.1 % (0.0-2.0); Eos # (Auto) 0.4 th/mm3 (0.0-0.4); Eos % (Auto) 6.1 % (0.0-4.0); Hematocrit 37.6 % (35.0-46.0); Hemoglobin 11.8 gm/dL (11.6-15.3); Lymph % (Auto) 30.6 % (9.0-44.0); Mean Corpuscular HGB Conc 31.4 % (32.0-36.0); Mean Corpuscular Hemoglobin 23.8 pg (27.0-34.0); Mean Platelet Volume 7.6 fL (7.0-11.0); Mono # (Auto) 0.6 th/mm3 (0.0-0.9); Mono % (Auto) 8.4 % (0.0-8.0); Neut # (Auto) 3.6 th/mm3 (1.8-7.7); Neut % (Auto) 53.8 % (16.0-70.0); Platelet Count 284 th/mm3 (150-450); Red Blood Count 4.95 mil/mm3 (4.00-5.30); Red Cell Distribution Width 20.7 % (11.6-17.2); White Blood Count 6.7 th/mm3 (4.0-11.0)
[2018-08-28 06:47] LABS: Anion Gap 7 meq/L (5-15); Aspartate Aminotransferase 41 U/L (15-37); Blood Urea Nitrogen 15 mg/dL (7-18); Calcium 8.7 mg/dL (8.5-10.1); Carbon Dioxide 26.3 meq/L (21.0-32.0); Chloride 107 meq/L (98-107); Glomerular Filtration Rate Greater Than 89 mL/min (>89); Glucose,Random 90 mg/dL (74-106); Potassium 3.6 meq/L (3.5-5.1); Sodium 140 meq/L (136-145)
[2018-08-28 06:48] LABS: Alanine Aminotransferase 49 U/L (10-53)
[2018-08-28 06:50] LABS: Alkaline Phosphatase 107 U/L (45-117)
[2018-08-28] MEDS: Lurasidone 80 MG Tablet PO SCH (08:40)
[2018-08-28] MEDS: Gabapentin 100 MG Capsule PO SCH ×2 (08:40→12:13)
[2018-08-28] MEDS: Lisinopril 20 MG Tablet PO SCH (08:41)
[2018-08-28] MEDS: amLODIPine 10 MG Tablet PO SCH (08:41)
[2018-08-28] MEDS: Ascorbic Acid 500 MG Tablet PO SCH (08:41)
[2018-08-28] MEDS: Senna/Docusate Sodium 8.6/50 MG Tablet PO SCH (08:41)
[2018-08-28] MEDS: Ketorolac Inj 30 MG/ML (IVP) Vial IV.PUSH PRN (09:09)
--- NOTE | 2018-08-28 11:38 | P.PNFP ---
Subjective Interval history: Patient seen and examined this morning. Patient reports improved pain in left leg. Notes improved range of motion and strength. Patient denies nausea, vomiting, fever, chills abdominal pain, chest pain, shortness of breath, lightheadedness, dizziness, numbness or tingling in hands or feet. No other complaints today. <John Diaz - 08/28/18 11:38> Results - Labs Result diagrams: 08/28/18 05:36 08/28/18 05:36 <John Cannon - 08/28/18 16:42> Abnormal lab results 08/27/18 08/28/18 08/28/18 Range/Units 21:47 05:36 05:36 MCV 76.0 L (80.0-100.0) fL MCH 23.8 L (27.0-34.0) pg MCHC 31.4 L (32.0-36.0) % RDW 20.7 H (11.6-17.2) % [place] % (Auto) 8.4 H (0.0-8.0) % Eos % (Auto) 6.1 H (0.0-4.0) % POC Glucose 114 H (68-110) mg/dl AST 41 H (15-37) U/L Albumin 3.0 L (3.4-5.0) g/dL Short CBC 08/28/18 Range/Units 05:36 WBC 6.7 (4.0-11.0) th/mm3 Hgb 11.8 (11.6-15.3) gm/dL Hct 37.6 (35.0-46.0) % Plt Count 284 (150-450) th/mm3 [facility] 08/28/18 05:36 Sodium 140 Potassium 3.6 Chloride 107 Carbon Dioxide 26.3 BUN 15 Creatinine 0.65 Calcium 8.7 Liver Function 08/28/18 Range/Units 05:36 Total Bilirubin 0.2 (0.2-1.0) mg/dL AST 41 H (15-37) U/L ALT 49 (10-53) U/L Alkaline Phosphatase 107 (45-117) U/L Albumin 3.0 L (3.4-5.0) g/dL <John Cannon - 08/28/18 16:42> Abnormal lab results 08/27/18 08/28/1808/28/19 Range/Units 21:47 05:36 05:36 MCV 76.0 L (80.0-100.0) fL MCH 23.8 L (27.0-34.0) pg MCHC 31.4 L (32.0-36.0) % RDW 20.7 H (11.6-17.2) % [place] % (Auto) 8.4 H (0.0-8.0) % Eos % (Auto) 6.1 H (0.0-4.0) % POC Glucose 114 H (68-110) mg/dl AST 41 H (15-37) U/L Albumin 3.0 L (3.4-5.0) g/dL Short CBC 08/28/18 Range/Units 05:36 WBC 6.7 (4.0-11.0) th/mm3 Hgb 11.8 (11.6-15.3) gm/dL Hct 37.6 (35.0-46.0) % Plt Count 284 (150-450) th/mm3 BMP 08/28/18 05:36 Sodium 140 Potassium 3.6 Chloride 107 Carbon Dioxide 26.3 BUN 15 Creatinine 0.65 Calcium 8.7 Liver Function 08/28/18 Range/Units 05:36 Total Bilirubin 0.2 (0.2-1.0) mg/dL AST 41 H (15-37) U/L ALT 49 (10-53) U/L Alkaline Phosphatase 107 (45-117) U/L Albumin 3.0 L (3.4-5.0) g/dL <John Diaz 08/28/18 11:38> - Imaging Impressions Hip MRI 08/27/18 00:00 CONCLUSION: 1. Negative MRI of the left hip. I do not see an etiology for the patient's left hip pain. 2. There is no cough fracture or joint effusion. 3. Both SI joints appear normal. <John Diaz 08/28/18 11:38> Physical Exam Vital signs: Vital Signs 08/27/18 21:27 08/28/18 01:13 08/28/18 04:20 Temperature 98.0 F 98.0 F Pulse Rate 59 L 63 Respiratory Rate 20 20 18 Blood Pressure 162/93 H 163/81 H Pulse Oximetry 99 98 08/28/18 04:27 08/28/18 07:55 08/28/18 09:46 Temperature 97.9 F 98.1 F Pulse Rate 58 L 64 Respiratory Rate 20 20 16 Blood Pressure 143/95 H 167/95 H Pulse Oximetry 96 95 08/28/18 14:00 Temperature Pulse Rate Respiratory Rate Blood Pressure 161/81 H Pulse Oximetry Intake & Output 08/27/18 08/28/18 08/28/18 18:59 06:59 18:59 Intake Total 1000 / 1000 1000 / 1000 Balance 1000 / 1000 1000 / 1000 Weight 101.1 kg Intake: IV 1000 / 1000 1000 / 1000 NS Inj 1,000 ML @ 140 mls/hr IV 1000 / 1000 1000 / 1000 .CONT .Q7H9M [facility] Rx#:[id number] Other: # Voids 2 Date of Last Bowel Movement 08/26/18 <John Cannon - 08/28/18 16:42> Vital Signs 08/27/18 11:44 08/27/18 15:55 08/27/18 21:27 Temperature 98.2 F 98.0 F 98.0 F Pulse Rate 55 L 65 59 L Respiratory Rate 20 20 20 Blood Pressure 123/67 145/82 H 162/93 H Pulse Oximetry 98 98 99 08/28/18 01:13 08/28/18 04:20 08/28/18 04:27 Temperature 98.0 F 97.9 F Pulse Rate 63 58 L Respiratory Rate 20 18 20 Blood Pressure 163/81 H 143/95 H Pulse Oximetry 98 96 08/28/18 07:55 08/28/18 09:46 Temperature 98.1 F Pulse Rate 64 Respiratory Rate 20 16 Blood Pressure 167/95 H Pulse Oximetry 95 Intake & Output 08/27/18 08/28/18 08/28/18 18:59 06:59 18:59 Intake Total 1000 / 1000 1000 / 1000 Balance 1000 / 1000 1000 / 1000 Weight 101.1 kg Intake: IV 1000 / 1000 1000 / 1000 NS Inj 1,000 ML @ 140 mls/hr IV 1000 / 1000 1000 / 1000 .CONT .Q7H9M [facility] Rx#:[id number] Other: # Voids 2 Date of Last Bowel Movement 08/26/18 <John Diaz - 08/28/18 11:38> Narrative: GENERAL: Overweight appearing female, sitting in examination bed. SKIN: Warm and dry. HEAD: Normocephalic. EYES: No scleral icterus. No injection or drainage. NECK: Supple, trachea midline. No JVD or lymphadenopathy. CARDIOVASCULAR: Grade 2 out of 5 systolic murmur appreciated at the left sternal border. No radiation. Regular rate. RESPIRATORY: Breath sounds equal bilaterally. No accessory muscle use. GASTROINTESTINAL: Abdomen soft, non-tender, nondistended. MUSCULOSKELETAL: No cyanosis, or edema. Cranial nerves grossly intact. 5 out of 5 strength in the right upper and lower extremities. 5 out of 5 strength in the left upper extremity. 4/5 in left lower extremity. Appropriate range of motion. Sensation intact bilaterally. Tenderness to palpation of the left greater trochanter region. BACK: Nontender without obvious deformity. No CVA tenderness. <Harvinder LewisRaymundo - 08/28/18 11:38> Assessment and Plan - Assessment (1) Left-sided weakness Code(s): R53.1 - Weakness Status: Acute (2) Numbness and tingling Code(s): R20.0 - Anesthesia of skin; R20.2 - Paresthesia of skin Status: Acute (3) Diabetes Code(s): E11.9 - Type 2 diabetes mellitus without complications Status: Acute (4) Osteoarthritis Code(s): M19.90 - Unspecified osteoarthritis, unspecified site Status: Acute (5) Hypertension Code(s): I10 - Essential (primary) hypertension Status: Acute (6) Hepatitis C Code(s): B19.20 - Unspecified viral hepatitis C without hepatic coma Status: Acute (7) Renal disease Code(s): N28.9 - Disorder of kidney and ureter, unspecified Status: Acute (8) Depression Code(s): F32.9 - Major depressive disorder, single episode, unspecified Status : Acute (9) Nutrition, metabolism, and development symptoms Code(s): R63.8 - Other symptoms and signs concerning food and fluid intake Status: Acute <John Cannon - 08/28/18 16:42> (1) Left-sided weakness Code(s): R53.1 - Weakness Status: Acute Plan: Patient initially with left-sided weakness. Left upper weakness resolved. Mild left lower weakness, improving. -Hip x-rays were within normal limits -Spinal MRI with a very degrees of thecal sac stenosis -Head CT with no significant abnormalities -Head MRI with chronic small vessel ischemic and atrophic changes -Neurochecks (2) Numbness and tingling Code(s): R20.0 - Anesthesia of skin; R20.2 - Paresthesia of skin Status: Acute Plan: Possibly due to be due to diabetes neuropathy.UDS positive for cocaine and marijuana. Improved today. -Gabapentin (3) Diabetes Code(s): E11.9 - Type 2 diabetes mellitus without complications Status: Acute Plan: Hold metformin. Low-dose sliding scale. (4) Osteoarthritis Code(s): M19.90 - Unspecified osteoarthritis, unspecified site Status: Acute Plan: Ketorolac for pain control. (5) Hypertension Code(s): I10 - Essential (primary) hypertension Status: Acute Plan: Continue amlodipine 10 mg daily. Continue lisinopril 10 mg daily. (6) Hepatitis C Code(s): B19.20 - Unspecified viral hepatitis C without hepatic coma Status: Acute Plan: Currently stable. (7) Renal disease Code(s): N28.9 - Disorder of kidney and ureter, unspecified Status: Acute Plan: Patient states that she has renal disease creatinine within normal limits. Continue to monitor. (8) Depression Code(s): F32.9 - Major depressive disorder, single episode, unspecified Status : Acute Plan: Continue Latuda 80 mg daily. (9) Nutrition, metabolism, and development symptoms Code(s): R63.8 - Other symptoms and signs concerning food and fluid intake Status: Acute Plan: Fluids: Tolerating p.o. Electrolytes: Monitor and replete as needed. Diet: Diabetic diet. <John Diaz - 08/28/18 11:35> - Assessment and Plan 57-year-old female presents with acute left-sided weakness of the lower extremities with associated numbness and tingling. Stroke workup negative. Improved left-sided weakness. UDS positive for cocaine and marijuana. <John Diaz - 08/28/18 11:38> - Attending Attestation Patient seen with resident team this morning. I agree with documentation above. Patient feels better today. Left leg is 4/5 strength compared to 2/5 strength seen at admission. Left arm without deficits today. Sensation is intact. Recommend outpatient evaluation, possible NCS/EMG in the outpatient setting for further workup. X ray and MRI of left hip obtained for left groin pain with lower extremity movement is benign. Symptoms may be related to spinal stenosis seen on MRI of her spine. Discharge plan discussed with patient. <John Cannon - 08/28/18 16:42>
--- NOTE | 2018-08-28 11:54 | P.DS ---
Date of admission: 08/26/18 10:54 Primary care physician: Dr Tr Schmidt Brief History from admission: 57 year old female complaining of Left sided leg weakness that started 2 months ago after her colon surgery for colon cancer. HPI limited due to patient being emotionally labile during the interview. She states that the leg pain is usually worse in the morning and at night when she laid down to sleep. She would use a heating pad and warm showers to alleviate the pain. The pain is located at the left hip and radiates to the groin. Patient says that during the day when she is walking the pain goes away. She also confirms dragging of her left foot and also associated numbness and tingling of the left hand and feet. This morning when she got into the shower she was unable to move her left leg and she had associated numbing pain that felt like a pressure. She was unable to lift her left leg and came to the emergency room for further evaluation. PMH: HBP, DM2, Osteoarthritis, Hep C, Renal Failure, Depression. PSH: Hysterectomy and colon cancer surgery. Allergies: NKDA Meds: Reconciled. Fam Hx: Father had prostate Cancer, Mother has a heart disorder, abdominal obstruction. Social Hx: Drinks alcohol everyday. Use to be a crack addict (last did crack 3 years ago, smoked) Smokes marijuana every other day. Does not smoke cigarettes. Lives alone. Sexually Active with males. No History of HIV/ STDs. CODE STATUS: DNR/DNI. Review of systems: Denies any chest pain, shortness of breath, abdominal pain, problems with urination or defecation. Left eye blurriness but states it is due to her glaucoma. Denies any headaches, dizziness. DS: Diagnosis - Discharge Diagnosis (1) Left-sided weakness Status: Acute (2) Numbness and tingling Status: Acute (3) Diabetes Status: Acute (4) Osteoarthritis Status: Acute (5) Hypertension Status: Acute (6) Hepatitis C Status: Acute (7) Renal disease Status: Acute (8) Depression Status: Acute (9) Nutrition, metabolism, and development symptoms Status: Acute DS: Summary Hospital Course: 57-year-old female who presented to the ED on 08/26/18 with left-sided weakness. Patient had noted that the weakness was chronic, however there was an acute exacerbation without resolution which was significantly abnormal for her. Imaging including CTA, MRI, neck CTA without findings significant for CVA. Patient continued to have pain in the left hip and weakness in left leg. Hip x- ray negative, hip MRI negative. Patient's leg pain and weakness resolved significantly on its own during admission. Patient discharged 08/28/18 with outpatient rehab. - Time Spent with Patient Total time spent providing and/or coordinating discharge services: Greater than 30 minutes - Quality: VTE Deep Vein Thrombosis/Pulmonary Embolism Present on Admission: No Exam Vital signs: Vital Signs 08/27/18 15:55 08/27/18 21:27 08/28/18 01:13 Temperature 98.0 F 98.0 F 98.0 F Pulse Rate 65 59 L 63 Respiratory Rate 20 20 20 Blood Pressure 145/82 H 162/93 H 163/81 H Pulse Oximetry 98 99 98 08/28/18 04:20 08/28/18 04:27 08/28/18 07:55 Temperature 97.9 F 98.1 F Pulse Rate 58 L 64 Respiratory Rate 18 20 20 Blood Pressure 143/95 H 167/95 H Pulse Oximetry 96 95 08/28/18 09:46 Temperature Pulse Rate Respiratory Rate 16 Blood Pressure Pulse Oximetry Intake & Output 08/27/18 08/28/18 08/28/18 18:59 06:59 18:59 Intake Total 1000 / 1000 1000 / 1000 Balance 1000 / 1000 1000 / 1000 Weight 101.1 kg Intake: IV 1000 / 1000 1000 / 1000 NS Inj 1,000 ML @ 140 mls/hr IV 1000 / 1000 1000 / 1000 .CONT .[id number] [facility] Rx#:[id number] Other: # Voids 2 Date of Last Bowel Movement 08/26/18 Results Procedures completed during hospitalization: None Labs on day of discharge: Labs from last 24 hours 08/28/18 08/28/18 08/28/18 07:19 05:36 05:36 WBC 6.7 RBC 4.95 Hgb 11.8 Hct 37.6 MCV 76.0 L MCH 23.8 L MCHC 31.4 L RDW 20.7 H Plt Count 284 MPV 7.6 Neut % (Auto) 53.8 Lymph % (Auto) 30.6 Mathews % (Auto) 8.4 H Eos % (Auto) 6.1 H Baso % (Auto) 1.1 Neut # (Auto) 3.6 Lymph # (Auto) 2.0 Mathews # (Auto) 0.6 Eos # (Auto) 0.4 Baso # (Auto) 0.1 WBC Differential . Differential Comment Auto diff final Sodium 140 Potassium 3.6 Chloride 107 Carbon Dioxide 26.3 Anion Gap 7 BUN 15 Creatinine 0.65 Estimated GFR Greater than 89 POC Glucose 92 Random Glucose 90 Calcium 8.7 Total Bilirubin 0.2 AST 41 H ALT 49 Alkaline Phosphatase 107 Total Protein 7.0 Albumin 3.0 L 08/28/18 08/27/18 08/27/18 04:43 21:47 17:18 WBC RBC Hgb Hct MCV MCH MCHC RDW Plt Count MPV Neut % (Auto) Lymph % (Auto) Mathews % (Auto) Eos % (Auto) Baso % (Auto) Neut # (Auto) Lymph # (Auto) Mathews # (Auto) Eos # (Auto) Baso # (Auto) WBC Differential Differential Comment Sodium Potassium Chloride Carbon Dioxide Anion Gap BUN Creatinine Estimated GFR POC Glucose 108 114 H 87 Random Glucose Calcium Total Bilirubin AST ALT Alkaline Phosphatase Total Protein Albumin 08/27/18 12:09 WBC RBC Hgb Hct MCV MCH MCHC RDW Plt Count MPV Neut % (Auto) Lymph % (Auto) Mathews % (Auto) Eos % (Auto) Baso % (Auto) Neut # (Auto) Lymph # (Auto) Mathews # (Auto) Eos # (Auto) Baso # (Auto) WBC Differential Differential Comment Sodium Potassium Chloride Carbon Dioxide Anion Gap BUN Creatinine Estimated GFR POC Glucose 97 Random Glucose Calcium Total Bilirubin AST ALT Alkaline Phosphatase Total Protein Albumin - Impressions ITS Impressions Hip X-Ray 08/26/18 00:00 CONCLUSION: Unremarkable study. Neck MRA 08/26/18 00:00 CONCLUSION: 1. Negative MRA Carotids. Percent stenosis is calculated using the diameter of the stenotic region over the diameter of the normal distal internal carotid artery Head CT 08/26/18 09:41 CONCLUSION: 1. No significant change compared to the previous examination in December 2011. 2. No acute intracranial abnormality. 3. Minimal scattered chronic periventricular and subcortical white matter small vessel ischemic changes bilaterally. 4. Old lacunar infarct or ischemic change within the left subinsular region. . Head CTA 08/26/18 10:52 CONCLUSION: 1. Suboptimal study probable atherosclerotic changes bilaterally. Neck CTA 08/26/18 10:52 CONCLUSION: 1. Very limited examination since most of the contrast stays within the venous system on the left side filling left IJ and left neck venous plexus. Some degree of venous obstruction is suspected not adequately characterized by this technique may be at the level of the brachiocephalic veins. 2. Hypoplastic right vertebral artery with limited evaluation of the carotid arteries, however they appear grossly intact without any significant stenosis. Entire Spine MRI 08/26/18 11:40 CONCLUSION: 1. Moderate to severe thecal sac stenosis C5-6 and L3-4. 2. Slight overall thecal sac stenosis C4-5 anterior CSF effacement at C3-4. 3. Moderate thecal sac stenosis L5-S1. 4. S1 is partially lumbarized. Head MRI 08/26/18 11:43 CONCLUSION: Chronic small vessel ischemic and atrophic changes. Hip MRI 08/27/18 00:00 CONCLUSION: 1. Negative MRI of the left hip. I do not see an etiology for the patient's left hip pain. 2. There is no cough fracture or joint effusion. 3. Both SI joints appear normal. Discharge Plan - Discharge Disposition Patient Disposition: Disch W/Home Health Service - Discharge Condition Condition: Stable - Discharge Order Discharge Orders: Discharge Order (Routine); Ordered 08/27/18 Ordered By: John Blanton R2 - Physicians Team Attending Provider: John Cannon Other Providers: Stephane Hart MD
== END 2018-08-28 15:28 | disposition home health service (06) ==
LOC: NEPE 09:18 → INTOOBSV 10:54 → NEDA 10:54 → N05 13:45
PROVIDERS: ADMIT Family Medicine; ATTEND Family Medicine
CPT/HCPCS: 70450; 70496; 70498; 70548; 70553; 72156; 72158; 73502; 73723; 80053; 80307; 81001; 82550; 82552; 82948; 82962; 83036; 84484; 85025; 85610; 85730; 93005; 96374; 96376; 97116; 97162; 99285; A9585; G0378; G8987; G8988; J1815; J1885; J7030; Q9967